=== PATIENT | female | born 1950 | race Caucasian/White ===

== ENCOUNTER 2023-02-26 05:18 | Observation (INO) ==
--- NOTE | 2023-01-24 13:23 | PAT Medication Instructions ---
Medication Instructions Date of Service January 24, 2023 Home Medications Medication Instructions Recorded bupropion HCl 150 mg tablet,12 hr 150 mg PO BID #180 ea 03/03/22 sustained-release (Wellbutrin SR) levothyroxine 88 mcg tablet 88 mcg PO .COMPLEX #90 tabs 03/03/22 tramadol 50 mg tablet 50 mg PO Q8H PRN pain #30 tabs 09/15/22 levothyroxine 100 mcg tablet 100 mcg PO .COMPLEX #90 tabs 12/15/22 sumatriptan succinate 100 mg tablet 100 mg PO Q2H PRN migraines trazodone 50 mg tablet 100 mg PO HS PRN insomnia bupropion HCl 150 mg tablet,12 hr sustained-release (Wellbutrin SR) 150 mg PO BID levothyroxine 88 mcg tablet 88 mcg PO .COMPLEX fluticasone propionate 50 mcg/actuation nasal spray,suspension 2 spray intranasal DAILY PRN Nasal Congestion tramadol 50 mg tablet 50 mg PO Q8H PRN pain levothyroxine 100 mcg tablet 100 mcg PO .COMPLEX gabapentin 300 mg capsule 900 mg PO TID migraines pantoprazole 40 mg tablet,delayed release (Protonix) 40 mg PO QAM spironolactone 25 mg tablet 25 mg PO HS PRN Hypertension Take morning of surgery With a small sip of water, OTHERWISE NOTHING TO EAT OR DRINK AFTER MIDNIGHT: sumatriptan succinate 100 mg tablet 100 mg PO Q2H PRN migraines (if needed) bupropion HCl 150 mg tablet,12 hr sustained-release (Wellbutrin SR) 150 mg PO BID levothyroxine fluticasone propionate 50 mcg/actuation nasal spray,suspension 2 spray intranasal DAILY PRN Nasal Congestion (if needed) tramadol 50 mg tablet 50 mg PO Q8H PRN pain (if needed) gabapentin 300 mg capsule 900 mg PO TID migraines pantoprazole 40 mg tablet,delayed release (Protonix) 40 mg PO QAM Take evening before surgery sumatriptan succinate 100 mg tablet 100 mg PO Q2H PRN migraines (if needed) trazodone 50 mg tablet 100 mg PO HS PRN insomnia (if needed) bupropion HCl 150 mg tablet,12 hr sustained-release (Wellbutrin SR) 150 mg PO BID fluticasone propionate 50 mcg/actuation nasal spray,suspension 2 spray intranasal DAILY PRN Nasal Congestion (if needed) tramadol 50 mg tablet 50 mg PO Q8H PRN pain (if needed) gabapentin 300 mg capsule 900 mg PO TID migraines spironolactone 25 mg tablet 25 mg PO HS PRN Hypertension (if needed) Other Notes If you have any questions please call us at [phone] or [phone] or [phone] or [phone]
--- NOTE | 2023-01-30 14:29 | Anesthesiology Consultation ---
Date of Service January 30, 2023 Assessment & Plan (1) Encounter for pre-operative examination: - COVID screening: Per assessment on 01/30: No known COVID-19 positive contacts or current COVID-19 related symptoms. Travel screen negative. Patient vaccinated. At surgeon discretion if preop Covid testing being done. - Cardiology visit (01/18/23): "Patient was evaluated at [facility] ER on 12/29.. after sustaining a hypotensive episode and a profound near syncopal episode. Patient has been having a lot of difficulty with knee pain due to advanced osteoarthritis and she is planning on having both knees replaced by Dr. Murray in coming months. Patient thinks that her severe knee pain is contributing to these episodes. She was just standing when she suddenly felt warm all over, turned very pale, developed cold sweats followed by profound lightheadedness. Patient did not have complete loss of consciousness nor did she collapsed to the floor or sustain any injuries. She described the event as being awake and hearing people but feeling like I may pass out. This is different than her initial syncopal episodes when she was in [place]. She did not have any warning symptoms with those, but the past couple of near syncopal episode she has had have been described like a vasovagal near-syncope. Within 5-10 minutes of this last event, she felt like her so. Her made her go to the ER, but she was back to baseline by that time and her blood pressure was 132/74 in the ER. They watched her for short time -- but she did not require any specific treatment, IV fluids, etc.. Patient has not had any further near syncopal episodes nor has she had any syncopal episodes. She is able to do her activities of daily living and still works on a routine basis but she is slowed down by her knee pain at this point. Patient has not experienced any angina pectoris or anginal equivalent symptoms, overt signs or symptoms of heart failure, nor has she had any recent tachy-palpitations or tachy-arrhythmias. She has not had any symptoms suggestive of stroke or mini stroke. This is a very difficult case because the patient is hypertensive most with time but does have episodes of hypotension and in this case appears to have a vasovagal component. Recommend the followin. Continue Amlodipine 5 mg daily. 2. Continue Vytorin 10-10 mg daily. 3. Continue Toprol XL 12.5 mg daily. 4. Continue Spironolactone 25 mg daily. 5. Adjust antihypertensives based on morning blood pressure reading. 6. Maintain a low-sodium diet. 7. I suspect the gett ing her knees replaced lessen her propensity towards vasovagal episodes.. Based on her functional status without limiting cardiopulmonary symptoms, normal LV systolic function, and a normal EKG with the exception of PVCs -- patient is a low to intermediate cardiac risk for her upcoming knee replacement surgeries.. There is no need for further ischemic workup at this time." Chart Review Chart Review: Acceptable Risk for Surgery and Patient seen in Pre Admission Testing Teaching & Discussion Pre-Anesthesia Teaching/Discussion Notes: Instructed NPO after midnight before surgery,except medications with 15 cc of water. Medication instructions provided according to the PAT guidelines. History Surgery Operation Date: 02/26/23 10:40 Proposed Procedures p Total Knee Arthroplasty Bilateral - Michael Murray DO Height/Weight Height: 5 ft 3 in Weight: 65.5 kg Allergies Allergy/AdvReac Type Severity Reaction Status Date / Time Sulfa (Sulfonamide AdvReac Intermediate nausea Verified 01/24/23 08:55 Antibiotics) Medications Home Medications Medication Instructions Recorded Confirmed Last Taken sumatriptan succinate 100 mg tablet 100 mg PO Q2H PRN migraines 02/25/21 01/24/23 Unknown trazodone 50 mg tablet 100 mg PO HS PRN insomnia 02/25/21 01/24/23 Unknown bupropion HCl 150 mg tablet,12 hr 150 mg PO BID #180 ea 03/03/22 01/24/23 Unknown sustained-release (Wellbutrin SR) levothyroxine 88 mcg tablet 88 mcg PO .COMPLEX #90 tabs 03/03/22 01/24/23 Unknown fluticasone propionate 50 2 spray intranasal DAILY PRN Nasal 04/24/22 01/24/23 Unknown mcg/actuation nasal Congestion spray,suspension tramadol 50 mg tablet 50 mg PO Q8H PRN pain #30 tabs 09/15/22 01/24/23 Unknown levothyroxine 100 mcg tablet 100 mcg PO .COMPLEX #90 tabs 12/15/22 01/24/23 Unknown gabapentin 300 mg capsule 900 mg PO TID migraines 01/24/23 01/24/23 Unknown pantoprazole 40 mg tablet,delayed 40 mg PO QAM 01/24/23 01/24/23 Unknown release (Protonix) spironolactone 25 mg tablet 25 mg PO HS PRN Hypertension 01/24/23 01/24/23 Unknown Wheeled Walker #1 ea 01/30/23 01/30/23 Unknown Past Medical History Medical History Allergic rhinitis Anxiety and depression Hyperlipidemia no current medications Hypertension Hypotension Possibly pain related episodes Hypothyroidism Insomnia Migraine headache Osteoarthritis Paroxysmal atrial tachycardia Prediabetes per records, pt denies PVC's (premature ventricular contractions) Exercise / Class Metabolic Activity II 4-5 Yardwork/Stairs/Walk up hill (one FS (no CP, no SOB)) Past Family History Family History Father Hypertension Multiple myeloma Mother Esophageal cancer Other No family history of adverse response to anesthesia Denies family history of Ovarian cancer Prostate cancer Myocardial infarction Breast cancer Colorectal cancer Past Surgical History Surgical History History of carpal tunnel surgery R/L History of colonoscopy History of open reduction and internal fixation (ORIF) procedure Right ankle S/P rotator cuff repair Left shoulder Difficulty with post-op pain management* S/P tonsillectomy Past Anesthesia History No Hx of Anesthesia Complications and No Family Hx of Anesthesia Complications History of PONV No Hx of PONV and No Hx of Motion Sickness Social History Smoking Status: Never smoker Do You Dip or Chew Tobacco: No Hx Alcohol Use: No Hx Substance Use: No substance use type: does not use Review of Systems Patient denies chest pain, shortness of breath, dyspnea on exertion, fever, chills, cough, wheezing, palpitations. Physical Exam Vital Signs VITALS BP 165/67 P 87 TEMP 98.3 SP02 96%RA RESP 16 PHYSICAL Full cervical extension range of motion. Full TMJ range of motion. TMD 3 finger breaths Mallampati Score 2 Dentition: cap missing (right lower molar) Lungs: clear throughout to auscultation Cardiac: regular rate and rhythm with occasional beat, no murmurs noted Spine: normal Carotid arteries: negative bruit Extremities: no edema Lab Results Anesthesia Preop Results Results Anesthesia Widget: WBC 7.89 K/ul (4.8-10.8) 01/30/23 Hgb 12.1 g/dl (12.0-16.0) 01/30/23 Hct 36.5 % (37.0-47.0) L 01/30/23 Plt 348 K/uL (130-400) 01/30/23 Na 139 mmol/L (136-145) 01/30/23 K 3.9 mmol/L (3.5-5.1) 01/30/23 Cl 106 mmol/L (98-107) 01/30/23 CO2 27 mmol/L (21-32) 01/30/23 BUN 23 mg/dl (6-23) 01/30/23 Creat 1.32 mg/dl (0.6-1.2) H 01/30/23 Glucose Level 103 mg/dl (70-99(Fasting)) H 01/30/23 PT 10.3 Seconds (9.0-12.0) 01/30/23 PTT 28.7 Seconds (21.0-31.0) 01/30/23 INR 1.0 (0.9-1.1) 01/30/23 Blood Type Pending 01/30/23 Antibody Screen Pending 01/30/23 Testing Electrocardiogram Date: 12/29/22 SR with frequent PVCs at 68bpm. Chest X-Ray Date: 01/30/23 FINDINGS: Lung volumes are normal. Lungs are clear. There is no pneumothorax or pleural effusion. There is mild cardiomegaly. Mediastinal contours are normal. There is no evidence for pulmonary edema. IMPRESSION: No acute cardiopulmonary findings. Echocardiogram Date: 09/01/22 EF 60-65%. No RWMA. Mild MR. Borderline LAD. COVID-19 Risk Screen Screening Information COVID-19 Screen Date: 01/30/23 Exposure 21 Days Family/Household +COVID Last 21 Days: No Exposure 10 Days Any COVID Exposure Last 10 Days: No Symptoms Last 10 Days Experienced COVID Sx Last 10 Days: No + COVID 0-90 Days COVID + in Last 0-90 Days: No
[2023-02-26] MEDS ORDERED: dexAMETHasone 4 MG TAB PO SCH (06:00)
[2023-02-26] MEDS ORDERED: LR 60ML/HR IV SCH (06:00)
[2023-02-26] MEDS ORDERED: TRANEXAMIC ACID 1,000 MG **IV Intra-op IV SCH (06:00)
[2023-02-26] MEDS ORDERED: FAMOTIDINE 20 MG TAB PO SCH (06:00)
[2023-02-26] MEDS ORDERED: ACETAMINOPHEN 500 MG TAB PO SCH (06:00)
[2023-02-26] MEDS ORDERED: TRANEXAMIC ACID 1,000 MG **IV Pre-op IV SCH (06:00)
[2023-02-26] MEDS ORDERED: ceFAZolin 2000MG 2,000 MG/15 ML SYR IV SCH (06:00)
[2023-02-26] MEDS ORDERED: LR 500ML BOLUS, THEN 15ML/HR IV SCH (06:00)
[2023-02-26] MEDS ORDERED: GABAPENTIN 300 MG CAP PO SCH (06:00)
[2023-02-26] MEDS ORDERED: ORTHO JOINT MIX INFIL SCH (06:00)
[2023-02-26] MEDS ORDERED: BUPIVACAINE 0.5 % 5 MG/1 ML PF 10ML VIAL ONE (06:20)
[2023-02-26] MEDS ORDERED: EPINEPHrine INJ 1 MG/ML AMP ONE (06:20)
[2023-02-26] MEDS ORDERED: BUPIVACAINE 0.25% PF 30 ML VIAL ONE (06:20)
[2023-02-26] MEDS ORDERED: DEXAMETHASONE SOD INJ 4 MG/ML VIAL ONE (06:20)
[2023-02-26] MEDS ORDERED: MIDAZOLAM HCL 1 MG/ML 2ML VIAL ONE (06:39)
[2023-02-26] MEDS ORDERED: fentaNYL citrate PF 100 MCG/2 ML VIAL ONE (06:39)
--- NOTE | 2023-02-26 06:40 | History & Physical Bridge Note ---
Date of Service February 26, 2023 History & Physical Bridge Note I have examined the patient, reviewed the History & Physical and in the interval since the performance of the History & Physical I have noted the following changes of clinical significance: no changes noted
[2023-02-26] MEDS ORDERED: ORTHO JOINT ANESTHETIC ONE (06:54)
[2023-02-26] MEDS ORDERED: ONDANSETRON INJ 2 MG/ML 2 ML VIAL IV PRN ×2 (07:03→10:18)
[2023-02-26] MEDS ORDERED: ePHEDrine sulfate 50 MG/ML AMP IV PRN (07:03)
[2023-02-26] MEDS ORDERED: ATROPINE SULFATE 0.1 MG/ML 10ML SYR IV PRN (07:03)
[2023-02-26] MEDS ORDERED: fentaNYL citrate PF 100 MCG/2 ML VIAL IV PRN (07:03)
[2023-02-26] MEDS ORDERED: ONDANSETRON INJ 2 MG/ML 2 ML VIAL ONE (07:24)
[2023-02-26] MEDS ORDERED: PROPOFOL IV EMULSION 10 MG/ML 20 ML VIAL IV ONE (07:24)
[2023-02-26] MEDS ORDERED: ePHEDrine sulfate 50 MG/ML SYR ONE (07:29)
--- NOTE | 2023-02-26 09:20 | Operative Report ---
PG Post Operative Report Pre & Post Diagnosis Operation Date: 02/26/23 07:00 Pre-Op Diagnosis: Bilateral Knees Degenerative Joint Disease Post-Op Diagnosis: Bilateral Knees Degenerative Joint Disease I identified the patient and participated in the time-out.: Yes Procedure Operation Date: 02/26/23 07:00 Actual Procedures p Bilateral Total Knee Arthroplasty(Bilateral) - Michael Murray DO Surgeon Michael Murray DO Director Of Neurology Michael Garner PA-C Estimated Blood Loss 50 Findings Consistent with Post-Op Diagnosis Specimens Right and left femoral and tibial bone Description of Procedure Charlotte arrived [facility] for the above procedure. She was seen in the preoperative holding area and both knees were identified and signed. She was given a preoperative antibiotic, TXA, a spinal anesthetic and adductor nerve blocks. She was taken back to the operating room and laid on the table in supine position. She was given basic sedation. Both knees were then prepped and draped in sterile fashion. A timeout was done, and the patient and the operative extremities were properly identified. Right knee implants used: I used a Dalton Persona total knee arthroplasty system with a size 5 narrow PS femur, C tibia with a 30 mm stem extension, 28 oval patella, and a size 10 CPS polyethylene bearing. All components were cemented in place with Palacos G cement. A midline incision was made directly over the patella. Dissection was taken down to the extensor mechanism. A midvastus arthrotomy was used. The medial retinaculum was released and the fat pad was mostly excised. The knee was flexed and the ACL, PCL, and meniscus were removed. A drill was sent down the center of the femoral canal followed by an intramedullary melyssa. Off that melyssa a distal femoral cutting block was placed. 9 mm was resected off the distal femur at 5 of valgus. A posterior referencing AP sizing guide was then placed on the distal femur. The femur measured to be a size 5 narrow. 2 drill holes were placed in 3 of external rotation. A 4-in-1 cutting block was then impacted into place. Anterior, posterior, and chamfer cuts were then made. The proximal tibia was then exposed. An external tibial alignment guide was placed. A tibial cut guide was then anchored in place and the proximal tibia was then resected. The posterior aspect of the knee was then opened up and any additional meniscus fragments and osteophytes were removed. The tibia measured to be a size C. The tibial plate was then placed in the appropriate rotation and the tibia was drilled and punched. Trial components were then placed. I used a size 10 CPS polyethylene insert. The knee was brought through a full range of motion and felt to be stable. The peg holes for the femur were then drilled. The patella was then everted and 9 mm was resected off the posterior aspect of the patella. The patella measured to be a size 28 oval. 3 peg holes were then drilled. A trial patella was placed. The knee was once again brought through a full range of motion and felt to be stable. Trial components were then removed. The surrounding soft tissues were injected with 50 cc of an orthopedic pain control cocktail. All components were then cemented into place with Palacos G cement. The final polyethylene insert was th en snapped into place. Once cement was dry the tourniquet was deflated. Hemostasis was obtained. A dilute betadyne lavage was then done for 3 minutes. The joint was then irrigated with normal saline solution. The midvastus arthrotomy was then closed with #1 Vicryl suture. The skin was closed with 2-0 Vicryl, 3-0V lock suture, and cate. A Silverlon and a soft compressive dressing were placed. Left knee implants used: I used a Dalton Persona total knee arthroplasty system with a size 7 narrow femur, D tibia with a 30 mm stem extension, 28 oval patella, and a size 12 CPS polyethylene bearing. All components were cemented in place with Palacos G cement. A midline incision was made directly over the patella. Dissection was taken down to the extensor mechanism. A midvastus arthrotomy was used. The medial retinaculum was released and the fat pad was mostly excised. The knee was flexed and the ACL, PCL, and meniscus were removed. A drill was sent down the center of the femoral canal followed by an intramedullary melyssa. Off that melyssa a distal femoral cutting block was placed. 9 mm was resected off the distal femur at 5 of valgus. A posterior referencing AP sizing guide was then placed on the distal femur. The femur measured to be a size 7 narrow. 2 drill holes were placed in 3 of external rotation. A 4-in-1 cutting block was then impacted into place. Anterior, posterior, and chamfer cuts were then made. The proximal tibia was then exposed. An external tibial alignment guide was placed. A tibial cut guide was then anchored in place and the proximal tibia was resected. The posterior aspect of the knee was then opened up and any additional meniscus fragments and osteophytes were removed. The tibia measured to be a size D. The tibial plate was then placed in the appropriate rotation and the tibia was drilled and punched. Trial components were then placed. I used a size 12 CPS polyethylene insert. The knee was brought through a full range of motion and felt to be stable. The peg holes for the femur were then drilled. The patella was then everted and 9 mm was resected off the posterior aspect of the patella. The patella measured to be a size 28 oval. 3 peg holes were then drilled. A trial patella was placed. The knee was once again brought through a full range of motion and felt to be stable. Trial components were then removed. The surrounding soft tissues were injected with 50 cc of an orthopedic pain control cocktail. All components were then cemented into place with Palacos G cement. The final polyethylene insert was then snapped into place. Once cement was dry the tourniquet was deflated. Hemostasis was obtained. A dilute betadyne lavage was then done for 3 minutes. The joint was then irrigated with normal saline solution. The midvastus arthrotomy was then closed with #1 Vicryl suture. The skin was closed with 2-0 Vicryl, 3-0V lock suture, and cate. A Silverlon and a soft compressive dressing were placed. Lonny was then transferred to a hospital bed and taken to the postanesthesia care unit in stable condition. She tolerated the procedure well. Michael Garner PA-C, was present for the entire procedure. He was critical for patient positioning, prepping, draping, retraction exposure, wound closure and application of sterile dressing. I attest to the content of the Intraoperative Record and any orders documented therein. Any exceptions are noted below.
--- NOTE | 2023-02-26 09:55 | XRay Report ---
TWO VIEWS LEFT KNEE CLINICAL HISTORY: Postoperative examination. FINDINGS: AP and crosstable lateral portable views of the left knee are compared to study dated 023. A left knee arthroplasty is in near anatomic alignment. There has been undersurface remodeling o f the patella. No acute fracture is seen. 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 There are expected postoperative changes around the knee including skin clips, so ft tissue edema, and subcutaneous gas. IMPRESSION: 1. Expected postoperative changes status post left knee arthroplasty. No acute fracture is seen. 2. 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 ACT 112: Negative or not required by law. Electronically signed by: Dylon Rodriguez M.D. 02/26/2023 9:54 AM
--- NOTE | 2023-02-26 09:56 | XRay Report ---
RIGHT KNEE 2 VIEWS History: Right total knee arthroplasty. Degenerative arthritis. Postop. FINDINGS: The patient is status post a right total knee arthroplasty. The hardware is intact. No frac ture or dislocation. Skin cate are in place. IMPRESSION: Right total knee arthroplasty. No evidence for hardware complication. ACT 112: Negative or not required by law. Electronically signed by: Sharad Gonzalez M.D. 02/26/2023 9:54 AM
--- NOTE | 2023-02-26 10:16 | Anesthesiology Progress Note ---
Date of Service February 26, 2023 Anesthesia Post Procedure Vital Signs Vital Signs: Temp Pulse Pulse Resp BP Pulse Ox O2 Del Method 02/26/23 10:05 59 L 12 103/52 L 99 Room Air 02/26/23 09:55 36.3 C L 60 15 110/54 L 100 Room Air 02/26/23 09:45 60 16 120/64 100 Oxymask 02/26/23 09:35 62 16 114/56 L 100 Oxymask 02/26/23 09:28 36.0 C L 62 12 109/54 L 98 Oxymask 02/26/23 05:37 36.7 C 68 20 162/66 H 97 Room Air O2 Flow Rate 02/26/23 10:05 02/26/23 09:55 02/26/23 09:45 4 02/26/23 09:35 4 02/26/23 09:28 6 02/26/23 05:37 Transfer of Care Handoff Completed per policy Notes Mental Status: alert / awake / arousable Patient Amnestic to Procedure: Yes Nausea / Vomiting: adequately controlled Pain: adequately controlled Airway Patency, RR, SpO2: stable & adequate BP & HR: stable & adequate Hydration State: stable & adequate Neuraxial Anesthesia: was administered and sensory block is resolving Anesthetic Complications: no major complications apparent and Pt Satisfied with anesthetic care
[2023-02-26] MEDS ORDERED: MAGNESIUM HYDROXIDE SUSP 30 ML UDC PO PRN (10:18)
[2023-02-26] MEDS ORDERED: SPIRONOLACTONE 25 MG TAB PO PRN (10:18)
[2023-02-26] MEDS ORDERED: bisacodyL 10 MG SUPP PR PRN (10:18)
[2023-02-26] MEDS ORDERED: METOCLOPRAMIDE HCL INJ 5 MG/ML 2 ML VIAL IV PRN (10:18)
[2023-02-26] MEDS ORDERED: SUMAtriptan succinate 100 MG TAB PO PRN (10:18)
[2023-02-26] MEDS ORDERED: traZODone HCL 100 MG TAB PO PRN (10:18)
[2023-02-26] MEDS ORDERED: NALOXONE HCL 0.4 MG/1 ML VIAL/CARP IV PRN (10:18)
[2023-02-26] MEDS ORDERED: FLUTICASONE PROPIONATE NA SPR 16 GM BTL PRN (10:18)
[2023-02-26] MEDS ORDERED: HYDROmorphone INJ 0.5 MG/0.5 ML SYR IV PRN (10:18)
[2023-02-26] MEDS: KETOROLAC TROMETHAMINE 15 MG/ML VIAL IV SCH ×3 (10:59→22:30)
[2023-02-26] MEDS: SODIUM CHLORIDE 0.9% 1000ML 1,000 ML IV SCH ×2 (10:59→20:46)
[2023-02-26] MEDS: ACETAMINOPHEN 500 MG TAB PO SCH ×2 (13:50→22:31)
[2023-02-26] MEDS: GABAPENTIN 600 MG TAB PO SCH ×2 (13:50→20:38)
[2023-02-26] MEDS: ceFAZolin 2000MG 2,000 MG/15 ML SYR IV SCH ×2 (16:27→22:31)
[2023-02-26] MEDS: ASPIRIN 81 MG ECTAB PO SCH (20:38)
[2023-02-26] MEDS: buPROPion SR 150 MG TABCR PO SCH (20:38)
[2023-02-26] MEDS ORDERED: SENNA 8.6 MG TAB PO SCH (21:00)
[2023-02-26] MEDS: DOCUSATE SODIUM 100 MG CAP PO SCH (21:25)
[2023-02-27] MEDS: oxyCODONE HCL IR 5 MG TAB (IMMEDIATE RELEASE) PO PRN ×2 (01:16→08:05)
[2023-02-27] MEDS: ACETAMINOPHEN 500 MG TAB PO SCH (05:30)
[2023-02-27] MEDS: KETOROLAC TROMETHAMINE 15 MG/ML VIAL IV SCH (05:31)
[2023-02-27] MEDS ORDERED: LEVOTHYROXINE SODIUM 100 MCG TABLET PO SCH (06:30)
--- NOTE | 2023-02-27 06:36 | Orthopedic Progress Note ---
Date of Service February 27, 2023 Assessment & Plan (1) Status post bilateral knee replacements: Overall she is doing fairly well. She is not having much pain in her knees. She has been up and ambulating to the bathroom. She will be seen by physical therapy today for ambulation and range of motion exercises. The nursing staff can change her dressings after physical therapy. She is on aspirin for DVT prophylaxis. She can be discharged home later today. She will follow-up with orthopedics in 2 weeks. Gavin Porter was seen and examined at bedside this morning. Overall she is doing very well. She is not having much pain in her knees. She has been up and ambulating to the bathroom. She has no complaints.. Review of Systems All systems reviewed & are unremarkable except as noted in HPI & below. Physical Exam On physical examination of both knees, the dressing is clean and dry. Her legs are out full extension. She has active dorsiflexion plantarflexion of both ankles.. Results & Data Results & Data Laboratory Results . Diagnostic Findings Postoperative x-rays of both knees show the prosthesis to be in anatomic alignment without any evidence of fracture, screws, or loosening.. PG Care Time/CCT Total # of Minutes Spent Total Time Spent with Patient: Total time spent is greater than 50% in coordination of care (as documented) at patient's floor/unit and/or counseling patient: Coding Level of Care Code 21923 Post Operative Follow-Up Diagnoses Status post bilateral knee replacements Z96.653
--- NOTE | 2023-02-27 06:37 | Discharge Summary ---
Date of Service February 27, 2023 Principal Diagnosis Same as "Discharge Diagnosis" noted below under Discharge Instructions. Discharge Exam On physical examination of both knees, the dressing is clean and dry. Her legs are out full extension. She has active dorsiflexion plantarflexion of both ankles.. Discharge Data Procedures Performed Operation Date: 02/26/23 07:00 Actual Procedures p Bilateral Total Knee Arthroplasty(Bilateral) - Michael Murray DO Ordered Studies 02/26/23 05:00 US - OR guided needle placemen Routine Hospital Course (1) Status post bilateral knee replacements: On February 26, 2023 Charlotte arrived at [facility] and underwent bilateral knee replacements without complication. She had a spinal anesthetic. Postoperatively she was started on aspirin for DVT prophylaxis and transferred to the general orthopedic floors. Her hospital course was uneventful. On postop day #1, her vital signs were stable and her pain was well controlled. She was able to participate well with physical therapy doing ambulation and range of motion exercises. She was then discharged home. She will follow-up with orthopedics in 2 weeks. PG Care Time/CCT Total # of Minutes Spent Total Time Spent with Patient: Total time spent is greater than 50% in coordination of care (as documented) at patient's floor/unit and/or counseling patient: Discharge Plan Discharge Items Patient Disposition: Home - Home Health Services Reason For Visit: Bilateral Knees Degenerative Joint Disease Discharge Diagnosis: Bilateral knee replacements Activity: As commented below Non-emergency contact: Surgeon Call non-emergency contact if: your wound has increased redness and your wound has increased drainage Follow-up/Referrals: Teena Cadena DO [Primary Care Provider] - Diet: Regular Addtl Attending Provider Instructions: Activity and Therapy Recommendations: * If you are using [facility] then therapy will be provided at your home until they feel you have accomplished all of your goals. * If you are using [facility] then Physical Therapy will be provided until they feel you are ready to start Outpatient Physical Therapy. * If you are not using home therapy then Outpatient Physical Therapy should start about 3-5 days from your day of surgery. Therapy will last about 6-10 weeks * It is important not to put a pillow under your knee when you are relaxing or sleeping. It is just as important to make sure you are getting your knee perfectly straight as it is to regain your knee bend. * You were shown a series of exercises in the hospital. Do these exercises three times each day including the exercises you were shown in physical therapy. * Get up and walk several times each day. For the first four weeks, try not to stand or walk for more than one hour at a time. If you do stand or walk for more than one hour, you will not hurt anything, but your leg will likely swell. * As you feel comfortable, you may change from the walker or crutches to a cane and then to independent walking. Medications: * Narcotic You will likely be sent home from the hospital with a prescription for the narcotic pain medication that worked best throughout your stay. * Aspirin Most patients will be required to take Aspirin 81mg twice a day for 6 weeks after surgery. This is obtained [id number] and a prescription is not necessary. * Other medications may be prescribed for specific circumstances. If you have any questions, please call the office at . * Resume previous home medications unless otherwise instructed TEDs/Elastic Stockings: The white elastic stockings help limit swelling and prevent blood clots from forming in your legs.~ The more you wear them, the more they work. Wear them for six weeks. Dressing Care: The dressing can be changed after physical therapy on postop day #1. Daily dry dressing changes for a few days, especially if the incision is still draining some. If the incision is not draining then you may leave the cate open to air. If there is a little bit of drainage or if the cate are getting stuck on your clothing then cover the incision with a dry dressing. The cate will be removed at your 2 week follow-up appointment. Showering: You may shower 5 days from the day of surgery as long as the incision is no longer draining. You may shower with the cate exposed. Let soapy water run over the cate and pat them dry. Do not scrub or soak the incision. Things To Watch For: * Drainage from the incision site that occurs more than one week after your surgery. * Increased redness at the incision site. * Fever above 102 degrees Fahrenheit. * Unusual chest pain or shortness of breath. * Call [facility] at with any of the above problems Follow-Up Visit: Follow-up with Dr. Murray's PA (Michael Garner) 2-3 weeks after your day of surgery. He will remove your cate and answer any questions. If you have any additional questions or concerns, Dr Murray is usually in the office at the same time and will be available An appointment was probably scheduled when you signed-up for surgery in the office. If you have any questions call Office Instructions: More detailed instructions as well as Frequently Asked Questions were provided in a folder by our office when you signed-up for surgery. Please review these instructions when you get home. If you have any further questions or concerns, please feel free to call the office at [phone] Pending Studies at Discharge: No Stand-Alone Forms: My [facility], Smoking Cessation Medications and DC Order Prescriptions: New aspirin 81 mg Tablet,Delayed Release (Dr/Ec) 81 mg PO BID 42 Days Qty: 84 0RF oxycodone 5 mg Tablet 5 mg PO Q4H PRN (Reason: pain) Qty: 40 0RF Continued sumatriptan succinate 100 mg tablet 100 mg PO Q2H PRN (Reason: migraines) Rx Instructions: do not exceed 2 doses per 24 hrs trazodone 50 mg tablet 100 mg PO HS PRN (Reason: insomnia) fluticasone propionate 50 mcg/actuation spray,suspension 2 spray intranasal DAILY PRN (Reason: Nasal Congestion) Rx Instructions: administer into each nostril bupropion HCl [Wellbutrin SR] 150 mg tablet sustained-release 12 hr 150 mg PO BID Qty: 180 1RF levothyroxine 88 mcg tablet 88 mcg PO .COMPLEX Qty: 90 1RF Rx Instructions: 88 mcg PO Sunday and Sunday; (DME) [facility] [place] See Rx Instructions .MEDSUPPLY Qty: 1 0RF Rx Instructions: As directed levothyroxine 100 mcg tablet 100 mcg PO .COMPLEX Qty: 90 3RF Rx Instructions: 100 mcg PO Sunday- Sunday; tramadol 50 mg tablet 50 mg PO Q8H PRN (Reason: pain) Qty: 30 0RF spironolactone 25 mg tablet 25 mg PO HS PRN (Reason: Hypertension) pantoprazole [Protonix] 40 mg tablet,delayed release (DR/EC) 40 mg PO QAM gabapentin 300 mg capsule 900 mg PO TID Admission Data Admit Date/Time: 02/26/23 09:29 Attending Provider: Michael Murray Admit Provider: Michael Murray Primary Care Provider: Teena Cadena
[2023-02-27 06:59] LABS: Creatinine Clr Calc Pharmacy 38.7 ml/min; Est GFR (Non-African American) 44.8 ml/min
[2023-02-27] MEDS ORDERED: dexAMETHasone 4 MG TAB PO SCH (08:00)
[2023-02-27] MEDS: ASPIRIN 81 MG ECTAB PO SCH (08:05)
[2023-02-27] MEDS: buPROPion SR 150 MG TABCR PO SCH (08:06)
[2023-02-27] MEDS: GABAPENTIN 600 MG TAB PO SCH (08:06)
[2023-02-27] MEDS: DOCUSATE SODIUM 100 MG CAP PO SCH (08:06)
[2023-02-27] MEDS ORDERED: MULTIVITAMIN TAB PO SCH (09:00)
[2023-03-03] MEDS ORDERED: LEVOTHYROXINE SODIUM 88 MCG TABLET PO SCH (06:30)
== END 2023-02-27 12:09 | disposition home health service (06) ==
LOC: ASU 05:18 → 3E 05:18

== ENCOUNTER 2023-08-17 09:21 | Inpatient (IN) ==
--- NOTE | 2023-08-15 09:02 | Anesthesiology Consultation ---
Date of Service August 15, 2023 Assessment & Plan (1) Encounter for pre-operative examination: - Infectious disease screening: Per assessment on 08/15/23: No known infectious disease contacts or current infectious disease symptoms. No noted Covid positive test result in past 90 days. - S/P Left reverse TSA (06/25/23): Grade 2 view, MAC#3, ETT 7.0 + PNB at [facility]. No issues noted per post-op anesthesia progress note. - Cardiology visit (07/16/23): "Mrs. Monzon is a 72-year-old female with a history of Hypertension, Hypercholesterolemia, PVC's, PAC's, PAT, Prediabetes, Hypothyroidism, Anxiety/Depression, Migraine Headaches, Allergic Rhinitis, Osteoarthritis, Osteoarthritis s/p Bilateral TKA's 02/26/23 complicated by DVT and Right Pulmonary Embolus, s/p Left Reversed TSA 06/25/23, and Hypotension/Syncope who presents today for Cardiologic Follow-up. Since her last visit, patient had both knees replaced on 02/26/2023 and this was complicated by a right-sided pulmonary embolus and DVT. She is currently on Eliquis for this and will be treated for a minimum of 3 months if not longer. She also more recently had a left total shoulder arthroplasty which was uncomplicated on 06/25/2023. She is starting physical therapy for her shoulder today. Patient offers no complaints today..Continue Eliquis 5 mg b.i.d. for 3-6 months for her postoperative DVT and pulmonary embolism.. Increase aerobic activities as tolerated, she should be able to do much better since having her knees replaced.. Maintain a low-sodium diet.. Continue to monitor blood pressure at home with the goal average BP being < 130/80.. Continue medications as listed." - Eliquis instructions per surgeon/prescriber (was given approval by PCP to hold prior to 05/2023 Left TSA done at [facility], at surgeon/prescriber discretion regarding perioperative recommendations for upcoming surgery) Chart Review Chart Review: Acceptable Risk for Surgery and Patient NOT seen in Pre Admission Testing History Surgery Operation Date: 08/17/23 13:00 Proposed Procedures p Open Irrigation and Debridement Left Total Shoulder Arthroplasty, - Michael Murray DO s Polyethylene Exchange - Michael Murray, DO Height/Weight Height: 5 ft 3 in Weight: 63.503 kg Allergies Allergy/AdvReac Type Severity Reaction Status Date / Time Sulfa (Sulfonamide AdvReac Intermediate nausea Verified 08/14/23 11:55 Antibiotics) Medications Home Medications Medication Instructions Recorded Confirmed Last Taken levothyroxine 88 mcg tablet 88 mcg PO .COMPLEX #90 tabs 03/03/22 08/15/23 06/25/23 03:45 fluticasone propionate 50 2 spray intranasal DAILY PRN Nasal 04/24/22 08/15/23 Unknown mcg/actuation nasal Congestion spray,suspension levothyroxine 100 mcg tablet 100 mcg PO .COMPLEX #90 tabs 12/15/22 08/15/23 06/25/23 03:45 gabapentin 300 mg capsule 900 mg PO TID migraines 01/24/23 08/15/23 06/25/23 03:45 pantoprazole 40 mg tablet,delayed 40 mg PO QAM 01/24/23 08/15/23 06/25/23 03:45 release (Protonix) sumatriptan succinate 100 mg tablet 100 mg PO ONCE PRN migraines #20 04/13/23 08/15/23 Unknown tabs bupropion HCl 150 mg tablet,12 hr 150 mg PO BID #180 ea 05/21/23 08/15/23 06/25/23 03:45 sustained-release (Wellbutrin SR) cyanocobalamin (vitamin B-12) 1,000 mcg IM .COMPLEX #300 mL 05/25/23 08/15/23 06/22/23 1,000 mcg/mL injection solution apixaban 5 mg tablet (Eliquis) 5 mg PO BID #60 tabs 06/08/23 08/15/23 06/22/23 07:30 celecoxib 200 mg capsule (Celebrex) 200 mg PO Q12H PRN pain #30 caps 06/25/23 08/15/23 Unknown oxycodone-acetaminophen 5 mg-325 1 tab PO Q6H PRN pain #30 tabs 06/25/23 08/15/23 Unknown mg tablet (Percocet) oxycodone-acetaminophen 5 mg-325 1 tab PO Q6H PRN pain #30 tabs 07/11/23 08/15/23 Unknown mg tablet (Percocet) spironolactone 25 mg tablet 25 mg PO HS PRN Hypertension #90 07/23/23 08/15/23 Unknown tabs doxycycline hyclate 100 mg tablet 100 mg PO BID 10 days #20 tabs 07/24/23 08/15/23 Unknown sulfamethoxazole 800 1 tab PO Q12H 7 days #14 tabs 07/24/23 08/15/23 Unknown mg-trimethoprim 160 mg tablet (Bactrim DS) oxycodone 5 mg tablet 5 mg PO Q6 PRN pain #30 tabs 08/14/23 08/15/23 Unknown sulfamethoxazole 800 1 tab PO Q12H #10 tabs 08/14/23 08/15/23 Unknown mg-trimethoprim 160 mg tablet (Bactrim DS) Past Medical History Medical History (Updated 08/15/23 @ 08:53 by Bridgette Fay) Allergic rhinitis Anemia Anxiety and depression B12 deficiency History of pulmonary embolus (PE) Post-op b/l knee replacement (02/2023) Hyperlipidemia no current medications Hypertension Hypotension Possibly "pain related episodes" Hypothyroidism Insomnia Migraine headache Osteoarthritis Paroxysmal atrial tachycardia Post op infection left shoulder Prediabetes PVC's (premature ventricular contractions) Past Family History Family History Father Hypertension Multiple myeloma Mother Esophageal cancer Other No family history of adverse response to anesthesia Denies family history of Ovarian cancer Prostate cancer Myocardial infarction Breast cancer Colorectal cancer Past Surgical History Surgical History (Updated 08/15/23 @ 08:53 by Bridgette Fay) History of bilateral knee replacement History of carpal tunnel surgery R/L History of colonoscopy History of open reduction and internal fixation (ORIF) procedure Right ankle S/P rotator cuff repair Left shoulder Difficulty with post-op pain management* S/P tonsillectomy Status post reverse total replacement of left shoulder Social History Smoking Status: Never smoker Do You Dip or Chew Tobacco: No Hx Alcohol Use: No Hx Substance Use: No substance use type: does not use Lab Results Anesthesia Preop Results Results Anesthesia Widget: Blood Type O Positive 06/25/23 Antibody Screen NEGATIVE 06/25/23 Testing Laboratory Results 06/15/23 WBC 8.48 H/H 10.6/34.1 PLATELETS 368 SODIUM 141 POTASSIUM 3.8 CHLORIDE 108 CO2 27 BUN 17 CREATININE 0.93 GLUCOSE 119 TSH 1.512 HGBA1C 5.8% 05/08/23 PT 11.0 PTT 31.0 INR 1.0 *DOS for upcoming surgery 08/17/23, at anesthesiologist discretion DOS if they feel preop labs need updated prior to surgery from their perspective* Electrocardiogram Date: 03/27/23 Sinus rhythm with premature supraventricular complexes, rate 76 bpm Chest X-Ray Date: 03/07/23 No evidence of acute cardiopulmonary abnormality Echocardiogram Date: 09/01/22 EF 60-65% No regional wall motion abnormalities No LVH Mild mitral regurgitation Other Testing Chest CTA Date: 03/07/23 Nonocclusive embolus within a subsegmental branch of the left upper lobe No evidence of right sided heart strain is present Esophagus is dilated and fluid filled without evidence of obvious wall thickening Head and neck MRA Date: 06/26/22 No evidence of acute intracranial abnormality. In particular, no occlusion, hemorrhage, or aneurysmal disease is seen. Patency of the bilateral carotid and vertebral arteries with no evidence of hemodynamically significant stenosis.
[~2023-08-17 09:21] MED LIST: ACETAMINOPHEN 500 MG TAB PO SCH; BUPIVACAINE 0.5 % 5 MG/1 ML PF 10ML VIAL ONE; FAMOTIDINE 20 MG TAB PO SCH; GABAPENTIN 300 MG CAP PO SCH; LR 15ML/HR IV SCH; LR 60ML/HR IV SCH; ORTHO JOINT MIX INFIL SCH; TRANEXAMIC ACID 1,000 MG **IV Intra-op IV SCH; ceFAZolin 2000MG 2,000 MG/15 ML SYR IV SCH; dexAMETHasone 4 MG TAB PO SCH
[2023-08-17] MEDS ORDERED: MIDAZOLAM HCL 1 MG/ML 2ML VIAL ONE (12:24)
[2023-08-17] MEDS ORDERED: PROPOFOL IV EMULSION 10 MG/ML 20 ML VIAL IV ONE (12:24)
[2023-08-17] MEDS ORDERED: ROCURONIUM BROMIDE 10 MG/ML 5 ML VIAL IV ONE (12:24)
[2023-08-17] MEDS ORDERED: fentaNYL citrate PF 100 MCG/2 ML VIAL ONE (12:24)
[2023-08-17] MEDS ORDERED: LIDOCAINE 2% 2 ML VIAL/AMP(20MG/ML) INFIL ONE (12:24)
--- NOTE | 2023-08-17 12:53 | History & Physical Bridge Note ---
Date of Service August 17, 2023 History & Physical Bridge Note I have examined the patient, reviewed the History & Physical and in the interval since the performance of the History & Physical I have noted the following changes of clinical significance: no changes noted
[2023-08-17] MEDS: TRANEXAMIC ACID 1,000 MG **IV Pre-op IV SCH ×2 (13:07→18:08)
[2023-08-17] MEDS ORDERED: KETOROLAC 30 MG/ML VIAL IV PRN (13:29)
[2023-08-17] MEDS ORDERED: PROMETHAZINE HCL 6.25 MG in SODIUM CHLORIDE 0.9% 50 ML IV PRN (13:29)
[2023-08-17] MEDS ORDERED: ONDANSETRON INJ 2 MG/ML 2 ML VIAL IV PRN ×2 (13:29→18:13)
[2023-08-17] MEDS ORDERED: LABETALOL HCL IV 5 MG/ML 20ML IV PRN (13:29)
[2023-08-17] MEDS ORDERED: ATROPINE SULFATE 0.1 MG/ML 10ML SYR IV PRN (13:29)
[2023-08-17] MEDS ORDERED: DAKIN'S SOLN 0.5% FULL STRENGTH 473ML BTL EXT ONE (13:34)
[2023-08-17] MEDS ORDERED: ePHEDrine sulfate 50 MG/5 ML SYR ONE ×2 (14:24→15:01)
[2023-08-17] MEDS ORDERED: NEOSTIGMINE METHYLSULFATE 1 MG/ML 10ML VIAL ONE (14:26)
[2023-08-17] MEDS ORDERED: GLYCOPYRROLATE 0.2 MG/ML VIAL ONE (14:26)
[2023-08-17] MEDS ORDERED: ePHEDrine sulfate 50 MG/ML AMP ONE (15:01)
--- NOTE | 2023-08-17 16:01 | Operative Report ---
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 with loose glenoid baseplate and central glenoid bone loss I identified the patient and participated in the time-out.: Yes Procedure Operation Date: 08/17/23 13:00 Actual Procedures p Open Irrigation and Debridement of the left shoulder with removal of the glenoid and humeral implants, bone grafting of the central defect in the sarah oid, and implantation of a left shoulder hemiarthroplasty.- Michael Murray DO Surgeon Michael Murray DO [employer] Conservation Technician Michael Garner PA-C Estimated Blood Loss 100 Findings Consistent with Post-Op Diagnosis Specimens Abscess cultures Description of Procedure On August 17, 2023 Charlotte arrived at [facility] for the above procedure. She was seen in the preoperative holding area and the operative extremity identified and signed. She is given a preoperative antibiotic. She is taken back the operating room and laid on table supine position. She was put under general anesthesia. She was point to the beachchair position. Left shoulder was prepped and draped sterile fashion. A timeout was done. The patient and the operative extremity was properly identified. The full incision was opened back up. There was a large amount of purulent discharge from the inferior aspect of the incision. This was cultured. The infection did track through the deltopectoral interval and into the shoulder. The entire shoulder was opened up. Time was spent releasing the soft tissue in the subacromial and subdeltoid spaces. The subscapularis was not attached during the previous procedure. Once the soft tissues were released the humerus was dislocated. The humeral tray was then removed. Time was spent doing a debridement around the proximal humerus. The glenoid was then exposed. The glenosphere was then removed. The glenoid baseplate was grossly loose. This was not expected. 4 of the 5 screws were grossly loose and backing out. Decision was made to remove the glenoid baseplate. The screws were removed and the baseplate was easily removed. This left a central defect in the glenoid. Time was spent debriding all soft tissue getting down to a good bone bed. The remaining surrounding soft tissues were meticulously debrided. A 3-minute lavage of Dakin's solution was then done. The wound was then irrigated with 3 L normal saline solution. The shoulder was then scrubbed with a Betadine scrub brush. A 3-minute dilute Betadine lavage was then done. The wound was then irrigated with 3 L of normal saline solution. Another Betadine scrub brush was used. The shoulder was then irrigated with the final 3 L of normal saline solution by pulse lavage. At this point some drapes were changed all new irrigation, Bovie's, and suctions were opened. A new sterile table was brought in and all gloves were changed. The wound was once again irrigated. The glenoid was then exposed. A decision was made to graft the glenoid and convert to a hemiarthroplasty. The glenoid defect was then grafted with DBX chips and DBX putty. I was able to fill the entire defect. The proximal humerus was then exposed. Several humeral heads were trialed. A size 50 x 24 fully eccentric humeral head seem to be the best fit and give the most stability. The final size 50 x 24 mm head was then impacted into place. The shoulder was then reduced. The shoulder was brought through full range of motion. A final irrigation was done of the wound. A drain was placed. The deltopectoral interval was closed with 2-0 Vicryl. Skin was closed with 3-0 Vicryl and stap les. She was then placed in a soft dressing and a regular arm sling. She was then extubated and transferred to a hospital bed. She was taken to the postanesthesia care unit in stable condition. She tolerated the procedure well. Michael Garner PA-C, was present for the entire procedure. He was critical for patient positioning, prepping, draping, retraction exposure, wound closure and application of sterile dressing. I attest to the content of the Intraoperative Record and any orders documented therein. Any exceptions are noted below.
[2023-08-17] MEDS: HYDROmorphone INJ 1 MG/ML SYRINGE IV PRN ×7 (16:09→16:40)
--- NOTE | 2023-08-17 16:56 | XRay Report ---
XR shoulder LT min 2V routine HISTORY: 72 years-old Female Post shoulder surgery left shoulder arthroplasty COMPARISON: 06/25/2023 TECHNIQUE: 2 views of the left shoulder FINDINGS: Total joint arthroplasty with overlying skin cate. Surgical drainage catheter. Expected postoperat [place] soft tissue swelling without acute fracture. IMPRESSION: Left shoulder arthroplasty with expected postoperative changes. ACT 112: Negative or not required by law. The above report was generated using voice recognition software. It may contain grammatical, syntax o r spelling errors. Electronically signed by: Tejas Chong M.D. 08/17/2023 4:54 PM
--- NOTE | 2023-08-17 17:06 | Anesthesiology Progress Note ---
Date of Service August 17, 2023 Anesthesia Post Procedure Vital Signs Vital Signs: Temp Pulse Pulse Resp BP Pulse Ox O2 Del Method 08/17/23 17:00 68 20 153/60 H 93 Room Air 08/17/23 16:50 36.5 C 66 17 146/63 H 95 Nasal Cannula 08/17/23 16:30 69 17 142/48 H 100 Oxymask 08/17/23 16:20 71 21 130/89 99 Oxymask 08/17/23 16:10 68 16 128/64 99 Oxymask 08/17/23 16:40 69 15 149/61 H 100 Room Air 08/17/23 16:03 36.6 C 67 15 155/67 H 100 Oxymask 08/17/23 11:54 36.6 C 63 20 175/81 H 100 Room Air O2 Flow Rate 08/17/23 17:00 3 08/17/23 16:50 3 08/17/23 16:30 2 08/17/23 16:20 4 08/17/23 16:10 4 08/17/23 16:40 08/17/23 16:03 6 08/17/23 11:54 Pain Intensity Left Shoulder: Pain Intensity: 6 Transfer of Care Handoff Completed per policy Notes Mental Status: alert / awake / arousable Patient Amnestic to Procedure: Yes Nausea / Vomiting: adequately controlled Pain: adequately controlled Airway Patency, RR, SpO2: stable & adequate BP & HR: stable & adequate Hydration State: stable & adequate Anesthetic Complications: no major complications apparent
[2023-08-17] MEDS ORDERED: SUMAtriptan succinate 100 MG TAB PO PRN (18:13)
[2023-08-17] MEDS ORDERED: METOCLOPRAMIDE HCL INJ 5 MG/ML 2 ML VIAL IV PRN (18:13)
[2023-08-17] MEDS ORDERED: VANCOMYCIN CONSULT ACTIVE PRN (18:13)
[2023-08-17] MEDS ORDERED: bisacodyL 10 MG SUPP PR PRN (18:13)
[2023-08-17] MEDS ORDERED: NALOXONE HCL 0.4 MG/1 ML VIAL/CARP IV PRN (18:13)
[2023-08-17] MEDS ORDERED: FLUTICASONE PROPIONATE NA SPR 16 GM BTL PRN (18:13)
[2023-08-17] MEDS ORDERED: SPIRONOLACTONE 25 MG TAB PO PRN (18:13)
[2023-08-17] MEDS: oxyCODONE HCL IR 5 MG TAB (IMMEDIATE RELEASE) PO PRN (18:23)
[2023-08-17] MEDS: SODIUM CHLORIDE 0.9% 1,000 ML IV SCH (18:25)
[2023-08-17] MEDS: cefTRIAXone SODIUM 1,000 MG in DEXTROSE 5 % MINI-B 50 ML IV SCH (19:53)
[2023-08-17] MEDS: buPROPion SR 150 MG TABCR PO SCH (19:54)
[2023-08-17] MEDS: GABAPENTIN 300 MG CAP PO SCH (19:54)
[2023-08-17] MEDS: SENNA 8.6 MG TAB PO SCH (19:54)
[2023-08-17] MEDS: DOCUSATE SODIUM 100 MG CAP PO SCH (19:54)
[2023-08-17] MEDS: ACETAMINOPHEN 500 MG TAB PO SCH (19:55)
[2023-08-18] MEDS ORDERED: VANCOMYCIN HCL 1,000 MG in SODIUM CHLORIDE 0.9% 500 ML IV SCH (02:15)
[2023-08-18] MEDS ORDERED: VANCOMYCIN HCL 1,000 MG in SODIUM CHLORIDE 0.9% 250 ML IV SCH (02:15)
[2023-08-18] MEDS: oxyCODONE HCL IR 5 MG TAB (IMMEDIATE RELEASE) PO PRN ×3 (02:42→18:13)
[2023-08-18] MEDS: ACETAMINOPHEN 500 MG TAB PO SCH ×3 (05:49→21:16)
[2023-08-18] MEDS: LEVOTHYROXINE SODIUM 88 MCG TABLET PO SCH (05:49)
[2023-08-18] MEDS: SODIUM CHLORIDE 0.9% 1,000 ML IV SCH (06:23)
[2023-08-18 06:30] LABS: Basophils # (auto) 0.02 K/uL (0.00-0.20); Basophils % (auto) 0.2 %; Eosinophils # (auto) 0.01 K/uL (0.00-0.50); Eosinophils % (auto) 0.1 %; Hematocrit (blood only) 22.3 % (37.0-47.0); Hemoglobin 7.1 g/dl (12.0-16.0); Immature Granulocytes # (auto) 0.04 K/uL (0.01-0.20); Immature Granulocytes % (auto) 0.4 %; Lymphocytes # (auto) 0.92 K/uL (1.20-3.40); Lymphocytes % (auto) 9.1 %; Mean Corpuscular Hemoglobin 23.6 pg (25.0-34.0); Mean Corpuscular Hgb Conc 31.8 g/dL (32.0-36.0); Mean Corpuscular Volume 74.1 fL (80.0-100.0); Mean Platelet Volume 9.9 fL (9.4-12.4); Monocytes # (auto) 0.77 K/uL (0.11-0.59); Monocytes % (auto) 7.6 %; Neutrophils # (auto) 8.33 K/uL (1.40-6.50); Neutrophils % (auto) 82.6 %; Platelet Count 398 K/uL (130-400); Red Blood Count 3.01 M/uL (4.20-5.40); White Blood Count 10.09 K/ul (4.8-10.8)
[2023-08-18 06:59] LABS: BUN Creatinine Ratio 20.4 (10-20); Creatinine Clr Calc Pharmacy 48.1 ml/min; Est GFR (African American) 67.7 ml/min; Est GFR (Non-African American) 58.4 ml/min; Potassium 4.4 mmol/L (3.5-5.1)
[2023-08-18 07:01] LABS: RBC Morphology Unremarkable
[2023-08-18] MEDS: HYDROmorphone INJ 0.5 MG/0.5 ML SYR IV PRN ×4 (07:29→21:26)
--- NOTE | 2023-08-18 08:05 | Hospitalist Consultation ---
Date of Consultation August 18, 2023 Assessment & Plan (1) Prosthetic shoulder infection: POD#1 s/p Open Irrigation and Debridement of the left shoulder with removal of the glenoid and humeral implants, bone grafting of the central defect in the glenoid, and implantation of a left shoulder hemiarthroplasty.- Michael Murray DO. EBL 100cc WBC 10.0k Hgb 10.6--> 7.1.. Acute blood loss anemia/dilutional from surgery however no significant drain output from shoulder noted Patient on B12 replacement, however appears MCV <80 since May and will check iron panel/replacement. Consider unit of blood but asymptomatic at present/no bleeding reported B12 141 in March, has been getting injections at PCP office (next due next sunday) Folate was 7 at that time ID consulted by primary service Ceftriaxone IV abx ordered Cx from OR pending Pain control/bowel regimen/PT/OT per primary service Eliquis to resume today for DVT prophylaxis (had been held x 3 days, hx DVT/PE) Monitor labs in AM *Pt taking NSAIDs while on eliquis -- see below under anemia. (2) Anemia: Prior hgbs in the 12range in January but since February have been continuing to be int he 9s (was placed on eliquis for DVT/PE following b/l TKA in February) Hgb 7.1 from 10.6 pre-op, acute blood loss anemia from surgery in patient on AC (but was held x 3 days prior) and some dilutional aspect from IVF post-op, however patient w/ recent B12 level to 141 (getting B12 injections w/ PCP) and patient reported prior low iron but not on replacement while getting B12 figured out. She denies any abdominal pain/blood in urine or stool at present Interestingly, of note, patient was taking NSAIDs while on her anticoagulation w/ afib for dvt/pe and reports she was never told to not take NSAIDs on such No increased reflux/abd pain reported, hx reflux and stable on PPI therapy which has been continued No CP/SOB/lightheadedness reported but instructed to alert nursing if occurs Checking iron panel/consider IV replacement vs starting PO (ensure proper bowel regiment o prevent constipation if oral). will add fecal occult for completeness given NSAId use/consider increased PPI to BID Discussed to AVOID NSAIDS while on anticoagulation. Monitor for any bleeding. Monitor CBC in AM (3) History of pulmonary embolus (PE): Post-op b/l knee replacement (02/2023) Eliquis resuming today (had been held x 3 days prior to surgery). SCDs/valerie hose in meantime 96% on RA (4) Hypertension: BP 122/66 Continues spironolactone 25mg daily (prior was on more medications but issues w/ syncope, doing great since only on spironolactone. following w/ Kip nkechi) Monitor (5) Hyperlipidemia: not on statin (6) Hypothyroidism: TSH wnl on recent check - continue synthroid (7) Prediabetes: A1c 5.8 most recently, not on any home medications Add BSG AC/HS while inpatient Notify provider if any elevations and can add SSI but suspect elevation 2nd to steroids w/ surgery Plan Thank you for allowing hospitalist service to participate in the care of Ms Monzon. Hospitalist service will follow along. Please call with any questions/concerns. Supervising Physician Co-Signing Physician Notes During face to face encounter, I obtained a brief physical examination, and history of present illness I discussed plan of care with patient ALFONSO Mejia. I reviewed above note and agree with it except for the following: Patient consulted under medical service for infected prostethtic shoulder. Patient on ceftriaxone, will consult infectious disease. awaiting cultures History of Present Illness Reason for Consultation: post-op medical management Requesting Physician: Dr Murray Attending Physician: Michael Murray, History of Present Illness 72yo female with PMHx significant for HTN, HLD, PAC/PVCs, pre-DM, hypothy roidism, anxiety/depression, migraine, b/l TKA in February complicated DVT and R sided PE, s/p reverse TSA on 06/25/[address] Murray who presented for ongoing issues with her shoulder surgery -- had been having drainage from inferior aspect of incision requiring dressing changes several times daily, initially clear--> yellow. Was started on PO Doxy/Bactrim w/ improvement but then noticed abscess over anterior aspect of the shoulder with decreased ROM and increased pain and presented for Open Irrigation and Debridement of the left shoulder with removal of the glenoid and humeral implants, bone grafting of the central defect in the glenoid, and implantation of a left shoulder hemiarthroplasty with Michael Murray on 08/17. EBL 100cc. She is sitting up in bed in room 317, no acute distress. Pain controlled w/ IV medication and using oxyodone in between. Denies SOB/CP but discussed hgb drop. She has been getting B12 w/ PCP monthly, due next Sunday. She notes her iron has been low but had not been on replacement (but her has gotten replacement). She notes she had been taking 2 tylenol w/ 600mg ibuprofen about every 6-8 hours at home. Discussed monitoring for bleeding on anticoagulation. Of note, discussed NSAIDs use on anticoagulation with eliquis. She notes she had never been told not to take NSAIDs while on anticoagulation. Denies any blood in urine/stool. Hx reflux and controlled on PPI therapy at present but discussed to monitor. Discussed eliquis for hx DVT/PE -- reports had held x 3 days, resuming today per primary. On gabapentin for hx migraines, discussed decreasing dose given renal function and to alert of any migraine symptoms. She was seen by Dr Murray this morning. She is aware continued inpatient stay for ID consultation. Allergies Allergy/AdvReac Type Severity Reaction Status Date / Time Sulfa (Sulfonamide AdvReac Intermediate nausea Verified 08/17/23 12:00 Antibiotics) Home Medications Medication Instructions Recorded Confirmed Type levothyroxine 88 mcg tablet 88 mcg PO .COMPLEX #90 tabs 03/03/22 08/17/23 Rx fluticasone propionate 50 2 spray intranasal DAILY PRN Nasal 04/24/22 08/17/23 History mcg/actuation nasal Congestion spray,suspension levothyroxine 100 mcg tablet 100 mcg PO .COMPLEX #90 tabs 12/15/22 08/17/23 Rx gabapentin 300 mg capsule 900 mg PO TID migraines 01/24/23 08/17/23 History pantoprazole 40 mg tablet,delayed 40 mg PO QAM 01/24/23 08/17/23 History release (Protonix) sumatriptan succinate 100 mg tablet 100 mg PO ONCE PRN migraines #20 04/13/23 08/17/23 Rx tabs bupropion HCl 150 mg tablet,12 hr 150 mg PO BID #180 ea 05/21/23 08/17/23 Rx sustained-release (Wellbutrin SR) cyanocobalamin (vitamin B-12) 1,000 mcg IM .COMPLEX #300 mL 05/25/23 08/17/23 Rx 1,000 mcg/mL injection solution celecoxib 200 mg capsule (Celebrex) 200 mg PO Q12H PRN pain #30 caps 06/25/23 08/17/23 Rx spironolactone 25 mg tablet 25 mg PO HS PRN Hypertension #90 07/23/23 08/17/23 Rx tabs hydromorphone 2 mg tablet 2 mg PO Q4H PRN pain #60 tabs 08/21/23 Rx (Dilaudid) enoxaparin 60 mg/0.6 mL 60 mg (0.6 mL) subcut Q12H #6 mL 08/22/23 Rx subcutaneous syringe rifampin 300 mg capsule 300 mg PO BID #60 caps 08/22/23 Rx warfarin 5 mg tablet 5 mg PO DAILY@1600 #30 tabs 08/22/23 Rx nafcillin 2 gram/100 mL in 12 g IV .COMPLEX 08/23/23 History dextrose(iso-osmotic) intravenous piggyback Patient History Medical History Allergic rhinitis Anemia Anxiety and depression B12 deficiency History of pulmonary embolus (PE) Post-op b/l knee replacement (02/2023) Hyperlipidemia no current medications Hypertension Hypotension Possibly "pain related episodes" Hypothyroidism Insomnia Migraine headache Osteoarthritis Paroxysmal atrial tachycardia Post op infection left shoulder Prediabetes PVC's (premature ventricular contractions) Surgical History History of bilateral knee replacement History of carpal tunnel surgery R/L History of colonoscopy History of open reduction and internal fixation (ORIF) procedure Right ankle S/P rotator cuff repair Left shoulder Difficulty with post-op pain management* S/P tonsillectomy Status post reverse total replacement of left shoulder Family History Father Hypertension Multiple myeloma Mother Esophageal cancer Other No family history of adverse response to anesthesia Denies family history of Ovarian cancer Prostate cancer Myocardial infarction Breast cancer Colorectal cancer Social History Smoking Status: Never smoker Second Hand Exposure: No; Do You Dip or Chew Tobacco: No; Hx Alcohol Use: No Hx Substance Use: No Preferred Language: [place] Communication Ability: Effective Visual Impairment: No Limitations Hearing Ability: Normal Key Account Executive Required: No Beliefs That Will Affect Care: None marital status: Current Living Situation: Spouse current occupational status: employed current occupation: parttime at [employer] How many Children do You have: 2 How many Children do You have Comment: adopted special needs children Feels Safe at Home: Yes Childhood Exposure to Second-Hand Smoke: No Diet: regular Diet Comment: Regular caffeine: No during the past year weight has: remained stable Dental Care, Regularly: Yes Physical Activity Frequency: 3-4 Times per Week Physical Activity Frequency Comment: Walking Seatbelt Use: always Sunscreen Use: Yes Assistive Devices: None Review of Systems Review of Systems: All systems reviewed & are unremarkable except as noted in HPI & below Physical Exam Physical Exam: General: WD/WN female sitting up in bed, NAD, reporting some L shoulder pain but controlled with ordered medications HEENT; head normocephalic, atraumatic, mmm, trachea midline Resp; CTA, no w/c/r, on room air CV: RRR, no significant m/r/g, no pitting edema/calf tenderness (SCDs in place), pulses palpable GI: +BS, soft/NT MSK/Neuro: dressing to L shoulder intact, c/d/i, drain noted, no significant erythema, director payer strength equal bilaterally, pulses palpable, sensation intact Psych: AOx3, cooperative with exam Results & Data Results & Data Vital Signs (Past 12 Hours) Vital Signs Temp Pulse Resp BP Pulse Ox O2 Del Method O2 Flow Rate 08/18/23 07:20 36.5 C 69 16 122/66 100 Room Air 08/18/23 04:00 36.6 C 79 18 110/62 100 Room Air 08/17/23 19:50 Nasal Cannula 2 08/18/23 00:06 36.5 C 73 18 117/60 98 Room Air Laboratory Results 08/18/23 08/18/23 Range/Units 05:52 05:52 WBC 10.09 (4.8-10.8) K/ul RBC 3.01 L (4.20-5.40) M/uL Hgb 7.1 L (12.0-16.0) g/dl Hct 22.3 L (37.0-47.0) % MCV 74.1 L (80.0-100.0) fL MCH 23.6 L (25.0-34.0) pg MCHC 31.8 L (32.0-36.0) g/dL RDW Std Deviation 48.0 H (36.4-46.3) fL RDW Coeff of Jaxson 18.0 H (11.5-14.5) % Plt Count 398 (130-400) K/uL MPV 9.9 (9.4-12.4) fL Immature Gran % (Auto) 0.4 % Neut % (Auto) 82.6 % Lymph % (Auto) 9.1 % [place] % (Auto) 7.6 % Eos % (Auto) 0.1 % Baso % (Auto) 0.2 % Neut # (Auto) 8.33 H (1.40-6.50) K/uL Lymph # (Auto) 0.92 L (1.20-3.40) K/uL [place] # (Auto) 0.77 H (0.11-0.59) K/uL Eos # (Auto) 0.01 (0.00-0.50) K/uL Baso # (Auto) 0.02 (0.00-0.20) K/uL Immature Gran # (Auto) 0.04 (0.01-0.20) K/uL RBC Morphology Unremarkable Sodium 132 L (136-145) mmol/L Potassium 4.4 (3.5-5.1) mmol/L Chloride 105 (98-107) mmol/L Carbon Dioxide 22 (21-32) mmol/L Anion Gap 5 (3-11) BUN 20 (6-23) mg/dl Creatinine 0.98 (0.6-1.2) mg/dl Est Cr Clr Drug Dosing 48.1 ml/min Est GFR ( Amer) 67.7 ml/min Est GFR (Non-Af Amer) 58.4 ml/min BUN/Creatinine Ratio 20.4 H (10-20) Glucose 136 H (70-99(Fasting)) mg/dl Calcium 8.0 L (8.6-10.3) mg/dl Diagnostic Findings Shoulder X-Ray 08/17/23 16:09 XR shoulder LT min 2V routine HISTORY: 72 years-old Female Post shoulder surgery left shoulder arthroplasty COMPARISON: 06/25/2023 TECHNIQUE: 2 views of the left shoulder FINDINGS: Total joint arthroplasty with overlying skin cate. Surgical drainage catheter. Expected postoperative soft tissue swelling without acute fracture. IMPRESSION: Left shoulder arthroplasty with expected postoperative changes. ACT 112: Negative or not required by law. The above report was generated using voice recognition software. It may contain grammatical, syntax or spelling errors. Electronically signed by: Tejas Chong M.D. 08/17/2023 4:54 PM PG Care Time/CCT Total # of Minutes Spent Total Time Spent with Patient: Total time spent is greater than 50% in coordination of care (as documented) at patient's floor/unit and/or counseling patient: Coding Level of Care Code 11678 IN/OBS CONSULT LVL 4,60M Diagnoses Prosthetic shoulder infection T84.59XA; Z96.619 Anemia D64.9 History of pulmonary embolus (PE) Z86.711 Hypertension I10 Hyperlipidemia E78.5 Hypothyroidism E03.9 Prediabetes R73.03
[2023-08-18] MEDS: DOCUSATE SODIUM 100 MG CAP PO SCH ×2 (08:19→21:16)
[2023-08-18] MEDS: APIXABAN 5 MG TABLET PO SCH ×2 (08:19→21:16)
[2023-08-18] MEDS: MULTIVITAMIN TAB PO SCH (08:19)
[2023-08-18] MEDS: GABAPENTIN 300 MG CAP PO SCH ×3 (08:19→21:16)
[2023-08-18] MEDS: buPROPion SR 150 MG TABCR PO SCH ×2 (08:19→21:17)
--- NOTE | 2023-08-18 09:25 | Orthopedic Progress Note ---
Date of Service August 18, 2023 Assessment & Plan (1) Prosthetic shoulder infection: I went over the procedure with her in detail as well as postoperative expectations. The initial Gram stain has shown some gram-positive cocci. It is likely a staph species. She is currently on ceftriaxone and we will add r ifampin to prevent any biofilm on the prosthesis. The hospitalist has been consulted and is following her postoperative anemia. Infectious disease has been consulted as well. We are still waiting final cultures and sensitivities. She will likely be in the hospital for 3 days and then discharged to home on IV antibiotics with a PICC line. Gavin Porter was seen and examined at bedside this morning. Overall she is doing okay. She is not having too much pain in the left shoulder. I went over the procedure with her in detail. She has no new complaints.. Review of Systems All systems reviewed & are unremarkable except as noted in HPI & below. Physical Exam On physical examination of left shoulder, the dressing is clean and dry. The drain is to suction. She is wearing her sling as instructed.. Results & Data Results & Data Laboratory Results . Diagnostic Findings Postoperative x-rays of the left shoulder show the prosthesis to be in good alignment.. PG Care Time/CCT Total # of Minutes Spent Total Time Spent with Patient: Total time spent is greater than 50% in coordination of care (as documented) at patient's floor/unit and/or counseling patient: Coding Level of Care Code 05997 Post Operative Follow-Up Diagnoses Prosthetic shoulder infection T84.59XA; Z96.619
[2023-08-18 09:41] LABS: Ferritin 33.3 ng/ml (8-388)
[2023-08-18] MEDS ORDERED: COUGH DROP (SUGAR FREE) LOZ 24 LOZ/1 BOX BUCCAL STA (09:51)
[2023-08-18] MEDS ORDERED: COUGH DROP (SUGAR FREE) LOZ 24 LOZ/1 BOX BUCCAL ONE (09:53)
[2023-08-18] MEDS: cefTRIAXone SODIUM 1,000 MG in DEXTROSE 5 % MINI-B 50 ML IV SCH (18:04)
[2023-08-18] MEDS ORDERED: rifAMPin 300 MG CAPSULE PO SCH (21:00)
[2023-08-18] MEDS: SENNA 8.6 MG TAB PO SCH (21:17)
[2023-08-19] MEDS: LEVOTHYROXINE SODIUM 88 MCG TABLET PO SCH (06:06)
[2023-08-19] MEDS: ACETAMINOPHEN 500 MG TAB PO SCH ×2 (06:06→14:27)
[2023-08-19] MEDS: oxyCODONE HCL IR 5 MG TAB (IMMEDIATE RELEASE) PO PRN ×2 (06:14→14:26)
[2023-08-19 06:17] LABS: Hematocrit (blood only) 23.5 % (37.0-47.0); Hemoglobin 7.2 g/dl (12.0-16.0); Mean Corpuscular Hemoglobin 23.7 pg (25.0-34.0); Mean Corpuscular Hgb Conc 30.6 g/dL (32.0-36.0); Mean Corpuscular Volume 77.3 fL (80.0-100.0); Mean Platelet Volume 9.9 fL (9.4-12.4); Platelet Count 378 K/uL (130-400); RDW Coefficient of Variation 18.1 % (11.5-14.5); RDW Standard Deviation 50.6 fL (36.4-46.3); Red Blood Count 3.04 M/uL (4.20-5.40); White Blood Count 9.61 K/ul (4.8-10.8)
--- NOTE | 2023-08-19 06:20 | Orthopedic Progress Note ---
Date of Service August 19, 2023 Assessment & Plan (1) Prosthetic shoulder infection: Overall she is doing okay. We will remove the drain tomorrow. She will be seen by infectious disease tomorrow as well. Her cultures have grown out gram- positive cocci which is likely a staph species. I stopped the rifampin because she is on Eliquis and I want to wait infectious disease recommendations. We could always switch her anticoagulant if we need to. Blood cultures are negative to date. Gavin Porter was seen and examined at bedside this morning. Overall she is doing okay. She is having some increased pain in her left shoulder today. She is on the IV antibiotics. She has no new complaints.. Review of Systems All systems reviewed & are unremarkable except as noted in HPI & below. Physical Exam On physical examination of left shoulder, the dressing is clean and dry. She is wearing her sling as instructed. The drain is to suction.. Results & Data Results & Data Laboratory Results . Diagnostic Findings . PG Care Time/CCT Total # of Minutes Spent Total Time Spent with Patient: Total time spent is greater than 50% in coordination of care (as documented) at patient's floor/unit and/or counseling patient: Coding Level of Care Code 49997 Post Operative Follow-Up Diagnoses Prosthetic shoulder infection T84.59XA; Z96.619
[2023-08-19 06:36] LABS: BUN Creatinine Ratio 24.5 (10-20); Calcium 8.4 mg/dl (8.6-10.3); Creatinine Clr Calc Pharmacy 50.1 ml/min; Est GFR (African American) 71.2 ml/min; Est GFR (Non-African American) 61.5 ml/min; Magnesium 1.9 mg/dl (1.7-2.4); Potassium 4.3 mmol/L (3.5-5.1)
[2023-08-19] MEDS: DOCUSATE SODIUM 100 MG CAP PO SCH ×2 (08:01→20:13)
[2023-08-19] MEDS: buPROPion SR 150 MG TABCR PO SCH ×2 (08:01→20:13)
[2023-08-19] MEDS: APIXABAN 5 MG TABLET PO SCH ×2 (08:01→20:13)
[2023-08-19] MEDS: MULTIVITAMIN TAB PO SCH (08:02)
[2023-08-19] MEDS: GABAPENTIN 300 MG CAP PO SCH ×3 (08:02→20:13)
--- NOTE | 2023-08-19 08:52 | Hospitalist Progress Note ---
Date of Service August 19, 2023 Assessment & Plan (1) Prosthetic shoulder infection: Plan: POD#2 s/p Open Irrigation and Debridement of the left shoulder with removal of the glenoid and humeral implants, bone grafting of the central defect in the glenoid, and implantation of a left shoulder hemiarthroplasty.- Michael Murray DO. EBL 100cc WBC wnl, afebrile Hgb dropped pre-op 10.6--> 7.1 (of note, patient had been taking NSAIDs w/ her eliquis, not aware not able to take while on anticoagulation-- counselled) acute blood loss anemia as well as some dilution from IVF w/ surgery in setting of NSAID/anticoagulation use. No significant bleeding on exam, no CP/SOB, lightheaded/dizziness reported B12 injections monthly (next Sunday due) for prior level 141 in March. Folate wnl Iron panel w/ acute on chronic disease --> discussed starting PO iron supplementation but hgb 7.2/stable on repeat and could hold off until having bowel movements to prevent constipation Cx from OR pending -- GS rare gram positive cocci, no growth on culture at present - monitor Blood cultures ordered by primary 08/18 (noting had been on abx prior to admission, IV rocephin/vanco prior to collection) Ceftriaxone continued ID consult pending for AM Pain control/bowel regimen/PT/OT per primary service Eliquis resumed AM 08/18 (hx DVT/PE following b/l knee replacements earlier this year) (2) Anemia: Plan: Prior hgbs in the 12range in January but since February have been continuing to be int he 9s (was placed on eliquis for DVT/PE following b/l TKA in February) Hgb 7.1 from 10.6 pre-op, acute blood loss anemia from surgery in patient on AC (but was held x 3 days prior) and some dilutional aspect from IVF post-op, however patient w/ recent B12 level to 141 (getting B12 injections w/ PCP) and patient reported prior low iron but not on replacement while getting B12 figured out. She denies any abdominal pain/blood in urine or stool, no lightheaded/dizziness/hypotension/CP/SOB at present Interestingly, patient was taking NSAIDs while on her anticoagulation w/ afib for dvt/pe and reports she was never told to not take NSAIDs on such PPI continued, consider increasing to BID if needed, fecal occult ordered fro completeness but patient denied any blood in urine/stool Discussed to AVOID NSAIDS while on anticoagulation Iron panel acute on chronic --> consideration for PO supplementation once moving bowels as above Hgb stable 7.2 and will monitor for now (3) History of pulmonary embolus (PE): Plan: Post-op b/l knee replacement (02/2023) SCDs/valerie hose ordred post-op, eliquis resumed AM 08/18 (held x 3 days prior to surgery) (4) Hypertension: Plan: BP 157/69, stable in setting of pain Continues spironolactone 25mg daily (prior was on more medications but issues w/ syncope, doing great since only on spironolactone. following w/ Kip nkechi) Monitor (5) Hyperlipidemia: Plan: not on statin (6) Hypothyroidism: Plan: TSH wnl on recent check - continue synthroid (7) Prediabetes: Plan: A1c 5.8 most recently, not on any home medications Add BSG AC/HS while inpatient Notify provider if any elevations and can add SSI but suspect elevation 2nd to steroids w/ surgery --> can stop BSG AC/HS checks have been stable Plan Thank you for allowing hospitalist service to participate in the care of Ms Monzon. AVOID NSAIDS WHILE ON ANTICOAGULATION -- DISCUSSED W PATIENT MOVING FORWARD TO PREVENT BLEEDING Hospitalist service will follow along. Consider starting PO iron once moving bowels Please call with any questions/concerns. Admission and Anticipated Discharge Date Admission Date: August 18, 2023 Subjective Eval this morning, doing well except some increased pain to shoulder. Had been trying to hold off IV needs overnight but pain creeping up. She notes they work quicker and wear off quicker and trying to use the IV while PO taking effect but hopefully continued improvement. Reports Dr Murray planning to remove drain tomorrow. Eliquis restarted yesterday morning. No lightheaded/dizziness, hgb improved/stable on repeat. No CP/SOB. 98% on RA Passing gas/belly rumbling, has been ambulating. Discussed iron studies/would start oral supplementation once having bowel movements but will hold off while on pain medictions to prevent constipation issues. ID consult for tomorrow. SHe is aware likely dc not until [place] depending on timing for ID consult/CM arranging for IV abx/PICC line prior to dc. Questions/concerns addressed at this time. Physical Exam Physical Exam: General: WD/WN female sitting up in bed, NAD, reporting some L shoulder pain, need for medication if due (alerted nursing) HEENT; head normocephalic, atraumatic, mmm, trachea midline Resp; CTA, no w/c/r, on room air CV: RRR, no significant m/r/g, no pitting edema/calf tenderness (SCDs in place), pulses palpable GI: +BS, soft/NT MSK/Neuro: dressing to L shoulder intact, c/d/i, drain noted, no significant erythema, newspaper manager strength equal bilaterally, pulses palpable, sensation intact Psych: AOx3, cooperative with exam Results & Data Results & Data Vital Signs (Past 12 Hours) Vital Signs Temp Pulse Resp BP Pulse Ox O2 Del Method 08/19/23 07:06 36.5 C 65 18 157/69 H 98 Room Air 08/19/23 04:55 36.7 C 69 16 130/74 96 Room Air 08/18/23 23:32 36.7 C 71 16 122/70 97 Room Air Laboratory Results 08/19/23 08/19/23 08/19/23 Range/Units 07:57 05:50 05:50 WBC 9.61 (4.8-10.8) K/ul RBC 3.04 L (4.20-5.40) M/uL Hgb 7.2 L (12.0-16.0) g/dl Hct 23.5 L (37.0-47.0) % MCV 77.3 L (80.0-100.0) fL MCH 23.7 L (25.0-34.0) pg MCHC 30.6 L (32.0-36.0) g/dL RDW Std Deviation 50.6 H (36.4-46.3) fL RDW Coeff of Jaxson 18.1 H (11.5-14.5) % Plt Count 378 (130-400) K/uL MPV 9.9 (9.4-12.4) fL Sodium 137 (136-145) mmol/L Potassium 4.3 (3.5-5.1) mmol/L Chloride 106 (98-107) mmol/L Carbon Dioxide 27 (21-32) mmol/L Anion Gap 4 (3-11) BUN 23 (6-23) mg/dl Creatinine 0.94 (0.6-1.2) mg/dl Est Cr Clr Drug Dosing 50.1 ml/min Est GFR ( Amer) 71.2 ml/min Est GFR (Non-Af Amer) 61.5 ml/min BUN/Creatinine Ratio 24.5 H (10-20) Glucose 112 H (70-99(Fasting)) mg/dl POC Glucose 114 H (70-99) mg/dl Calcium 8.4 L (8.6-10.3) mg/dl Magnesium 1.9 (1.7-2.4) mg/dl Iron (35-150) mcg/dl TIBC (250-450) mcg/dl Unsaturated IBC (155-355) mcg/dl Transferrin % Sat (15-50) % Ferritin (8-388) ng/ml Folate (>5.38) ng/ml 08/18/23 08/18/23 08/18/23 Range/Units 23:36 05:52 05:52 WBC (4.8-10.8) K/ul RBC (4.20-5.40) M/uL Hgb (12.0-16.0) g/dl Hct (37.0-47.0) % MCV (80.0-100.0) fL MCH (25.0-34.0) pg MCHC (32.0-36.0) g/dL RDW Std Deviation (36.4-46.3) fL RDW Coeff of Jaxson (11.5-14.5) % Plt Count (130-400) K/uL MPV (9.4-12.4) fL Sodium (136-145) mmol/L Potassium (3.5-5.1) mmol/L Chloride (98-107) mmol/L Carbon Dioxide (21-32) mmol/L Anion Gap (3-11) BUN (6-23) mg/dl Creatinine (0.6-1.2) mg/dl Est Cr Clr Drug Dosing ml/min Est GFR ( Amer) ml/min Est GFR (Non-Af Amer) ml/min BUN/Creatinine Ratio (10-20) Glucose (70-99(Fasting)) mg/dl POC Glucose 133 H (70-99) mg/dl Calcium (8.6-10.3) mg/dl Magnesium (1.7-2.4) mg/dl Iron 11 L (35-150) mcg/dl TIBC 229 L (250-450) mcg/dl Unsaturated IBC 218 (155-355) mcg/dl Transferrin % Sat 5 L (15-50) % Ferritin 33.3 (8-388) ng/ml Folate 16.82 (>5.38) ng/ml Diagnostic Findings Shoulder X-Ray 08/17/23 16:09 XR shoulder LT min 2V routine HISTORY: 72 years-old Female Post shoulder surgery left shoulder arthroplasty COMPARISON: 06/25/2023 TECHNIQUE: 2 views of the left shoulder FINDINGS: Total joint arthroplasty with overlying skin cate. Surgical drainage catheter. Expected postoperative soft tissue swelling without acute fracture. IMPRESSION: Left shoulder arthroplasty with expected postoperative changes. ACT 112: Negative or not required by law. The above report was generated using voice recognition software. It may contain grammatical, syntax or spelling errors. Electronically signed by: Tejas Chong M.D. 08/17/2023 4:54 PM PG Care Time/CCT Total # of Minutes Spent Total Time Spent with Patient: Total time spent is greater than 50% in coordination of care (as documented) at patient's floor/unit and/or counseling patient: Coding Level of Care Code 23305 SUB INP/OBS CARE 2/35MIN Diagnoses Prosthetic shoulder infection T84.59XA; Z96.619 Anemia D64.9 History of pulmonary embolus (PE) Z86.711 Hypertension I10 Hyperlipidemia E78.5 Hypothyroidism E03.9 Prediabetes R73.03
[2023-08-19] MEDS: HYDROmorphone INJ 0.5 MG/0.5 ML SYR IV PRN ×3 (09:47→20:18)
[2023-08-19] MEDS ORDERED: ACETAMINOPHEN 500 MG TAB PO PRN (16:30)
[2023-08-19] MEDS: cefTRIAXone SODIUM 1,000 MG in DEXTROSE 5 % MINI-B 50 ML IV SCH (17:44)
[2023-08-19] MEDS: HYDROCODONE/ACETAMOPHEN 5/325MG TAB PO PRN (17:51)
[2023-08-19] MEDS: MAGNESIUM HYDROXIDE SUSP 30 ML UDC PO PRN (17:51)
[2023-08-19] MEDS: SENNA 8.6 MG TAB PO SCH (20:13)
[2023-08-20] MEDS: HYDROmorphone INJ 0.5 MG/0.5 ML SYR IV PRN ×4 (02:03→21:23)
[2023-08-20] MEDS: LEVOTHYROXINE SODIUM 100 MCG TABLET PO SCH (06:05)
[2023-08-20] MEDS: HYDROCODONE/ACETAMOPHEN 5/325MG TAB PO PRN ×2 (06:09→10:00)
[2023-08-20] MEDS: APIXABAN 5 MG TABLET PO SCH ×2 (08:09→21:16)
[2023-08-20] MEDS: GABAPENTIN 300 MG CAP PO SCH ×3 (08:09→21:17)
[2023-08-20] MEDS: buPROPion SR 150 MG TABCR PO SCH ×2 (08:09→21:16)
[2023-08-20] MEDS: DOCUSATE SODIUM 100 MG CAP PO SCH ×2 (08:10→21:16)
[2023-08-20] MEDS: MULTIVITAMIN TAB PO SCH (08:10)
[2023-08-20 11:17] LABS: Basophils # (auto) 0.05 K/uL (0.00-0.20); Basophils % (auto) 0.6 %; Eosinophils # (auto) 0.48 K/uL (0.00-0.50); Eosinophils % (auto) 5.3 %; Hematocrit (blood only) 23.5 % (37.0-47.0); Hemoglobin 7.3 g/dl (12.0-16.0); Immature Granulocytes # (auto) 0.04 K/uL (0.01-0.20); Immature Granulocytes % (auto) 0.4 %; Lymphocytes # (auto) 2.03 K/uL (1.20-3.40); Lymphocytes % (auto) 22.5 %; Mean Corpuscular Hemoglobin 23.5 pg (25.0-34.0); Mean Corpuscular Hgb Conc 31.1 g/dL (32.0-36.0); Mean Corpuscular Volume 75.6 fL (80.0-100.0); Mean Platelet Volume 9.6 fL (9.4-12.4); Monocytes # (auto) 0.76 K/uL (0.11-0.59); Monocytes % (auto) 8.4 %; Neutrophils # (auto) 5.66 K/uL (1.40-6.50); Neutrophils % (auto) 62.8 %; Platelet Count 422 K/uL (130-400); RDW Coefficient of Variation 18.6 % (11.5-14.5); RDW Standard Deviation 51.1 fL (36.4-46.3); Red Blood Count 3.11 M/uL (4.20-5.40); White Blood Count 9.02 K/ul (4.8-10.8)
[2023-08-20 11:28] LABS: BUN Creatinine Ratio 21.3 (10-20); Calcium 8.7 mg/dl (8.6-10.3); Creatinine Clr Calc Pharmacy 58.9 ml/min; Est GFR (African American) 86.6 ml/min; Est GFR (Non-African American) 74.7 ml/min; Potassium 3.8 mmol/L (3.5-5.1)
[2023-08-20 11:42] LABS: Hypochromasia Present
[2023-08-20] MEDS: MAGNESIUM HYDROXIDE SUSP 30 ML UDC PO PRN (13:16)
--- NOTE | 2023-08-20 16:44 | Orthopedic Progress Note ---
Date of Service August 20, 2023 Assessment & Plan (1) Prosthetic shoulder infection: The cultures have grown out a staph species but sensitivities are not back yet. A PIC line consent has been done and blood cultures are negative at 48 hours. She will hopefully be seen by infectious disease tomorrow and given antibiotic recommendations. She can have the PICC line then placed tomorrow. She can be discharged to home tomorrow if she has antibiotics set up and she is stable. We will see how she does. Gavin Porter was seen and examined at bedside this morning. Overall she is doing okay. Her pain is a little bit better today. The cultures have come back but the sensitivities have not come back yet. She has not yet been seen by infectious disease.. Review of Systems All systems reviewed & are unremarkable except as noted in HPI & below. Physical Exam On physical examination of the left shoulder, the dressing is clean and dry. The drain was removed today. She has active motion of her hand and her wrist.. Results & Data Results & Data Laboratory Results . Diagnostic Findings . PG Care Time/CCT Total # of Minutes Spent Total Time Spent with Patient: Total time spent is greater than 50% in coordination of care (as documented) at patient's floor/unit and/or counseling patient: Coding Level of Care Code 49194 Post Operative Follow-Up Diagnoses Prosthetic shoulder infection T84.59XA; Z96.619
--- NOTE | 2023-08-20 16:47 | Infectious Disease Consult ---
Date of Consultation August 20, 2023 Assessment & Plan (1) Prosthetic shoulder infection: Plan #Infected PJI # I+D of the left shoulder with removal of the glenoid and humeral implants on 08/17, OR Culture Staph aureus 72yo F with h/o HTN, HLD, PAC/PVCs, anxiety/depression, migraine, b/l TKA 02/2023, DVT and PE who underwent reverse total shoulder arthroplasty on 06/25/[address] Murray admitted with drainage. Post arthroplasty, patient noticed increased drainage and took oral antibiotics doxycycline and Bactrim. However pain and decreased function continued and she was admitted on under Dr. Addison care. On 08/17 she underwent open I+D of the left shoulder with removal of the glenoid and humeral implants, bone grafting of the central defect in the glenoid, and implantation of a left shoulder hemiarthroplasty. OR cultures are growing staph aureus, no yet speciated. WBC n ormal 08/18 Blood cultures are no growth. WBC normal. Cr normal. Post op Xray showed Left shoulder arthroplasty with expected postoperative changes. Patient currently on Ceftriaxone. RECOMMEND: -Will add Daptomycin 8mg/kg IV daily, check baseline CPK -PICC line, anticipate 6 weeks of therapy through 09/28/23 -Staph aureus speciation tomorrow hopefully and we will either plan for Daptomcyin vs Cefazolin/Nafcillin -DC Ceftriaxone Kusum Garcia MD Infectious Diseases Consultation Information This patient recommendation is based on a telemedicine consult request which was completed asynchronously through chart review and information provided by the primary physician. The patient was not seen or examined today. The evaluation is consultative in nature and all patient care and treatment decisions can either be accepted or rejected by the patient's primary hospital-based treating physician using their own independent medical judgment for their patient. Film Technician contact information: Please call [facility] . (Phone Number For Physician Use Only) Time Spent Reviewing Chart: 31+ minutes History of Present Illness Reason for Consultation: Joint infection Requesting Physician: Dr. Murray Attending Physician: Michael Murray, DO History of Present Illness 72yo F with h/o HTN, HLD, PAC/PVCs, anxiety/depression, migraine, b/l TKA 02/2023, DVT and PE who underwent reverse total shoulder arthroplasty on 06/25/[address] Murray admitted with drainage. Post arthroplasty, patient noticed increased drainage and took oral antibiotics doxycycline and Bactrim. However pain and decreased function continued and she was admitted on under Dr. Addison care. On 08/17 she underwent open I+D of the left shoulder with removal of the glenoid and humeral implants, bone grafting of the central defect in the glenoid, and implantation of a left shoulder hemiarthroplasty. OR cultures are growing staph aureus, no yet speciated. WBC normal 08/18 Blood cultures are no growth. WBC normal. Cr normal. Post op Xray showed Left shoulder arthroplasty with expected postoperative changes. Patient currently on Ceftriaxone. Allergies Allergy/AdvReac Type Severity Reaction Status Date / Time Sulfa (Sulfonamide AdvReac Intermediate nausea Verified 08/17/23 12:00 Antibiotics) Home Medications Medication Instructions Recorded Confirmed Type levothyroxine 88 mcg tablet 88 mcg PO .COMPLEX #90 tabs 03/03/22 08/17/23 Rx fluticasone propionate 50 2 spray intranasal DAILY PRN Nasal 04/24/22 08/17/23 History mcg/actuation nasal Congestion spray,suspension levothyroxine 100 mcg tablet 100 mcg PO .COMPLEX #90 tabs 12/15/22 08/17/23 Rx gabapentin 300 mg capsule 900 mg PO TID migraines 01/24/23 08/17/23 History pantoprazole 40 mg tablet,delayed 40 mg PO QAM 01/24/23 08/17/23 History release (Protonix) sumatriptan succinate 100 mg tablet 100 mg PO ONCE PRN migraines #20 04/13/23 08/17/23 Rx tabs bupropion HCl 150 mg tablet,12 hr 150 mg PO BID #180 ea 05/21/23 08/17/23 Rx sustained-release (Wellbutrin SR) cyanocobalamin (vitamin B-12) 1,000 mcg IM .COMPLEX #300 mL 05/25/23 08/17/23 Rx 1,000 mcg/mL injection solution apixaban 5 mg tablet (Eliquis) 5 mg PO BID #60 tabs 06/08/23 08/17/23 Rx celecoxib 200 mg capsule (Celebrex) 200 mg PO Q12H PRN pain #30 caps 06/25/23 08/17/23 Rx oxycodone-acetaminophen 5 mg-325 1 tab PO Q6H PRN pain #30 tabs 06/25/23 08/17/23 Rx mg tablet (Percocet) oxycodone-acetaminophen 5 mg-325 1 tab PO Q6H PRN pain #30 tabs 07/11/23 08/17/23 Rx mg tablet (Percocet) spironolactone 25 mg tablet 25 mg PO HS PRN Hypertension #90 07/23/23 08/17/23 Rx tabs doxycycline hyclate 100 mg tablet 100 mg PO BID 10 days #20 tabs 07/24/23 08/17/23 Rx sulfamethoxazole 800 1 tab PO Q12H 7 days #14 tabs 07/24/23 08/17/23 Rx mg-trimethoprim 160 mg tablet (Bactrim DS) oxycodone 5 mg tablet 5 mg PO Q6 PRN pain #30 tabs 08/14/23 08/17/23 Rx sulfamethoxazole 800 1 tab PO Q12H #10 tabs 08/14/23 08/17/23 Rx mg-trimethoprim 160 mg tablet (Bactrim DS) Patient History Medical History Allergic rhinitis Anemia Anxiety and depression B12 deficiency History of pulmonary embolus (PE) Post-op b/l knee replacement (02/2023) Hyperlipidemia no current medications Hypertension Hypotension Possibly "pain related episodes" Hypothyroidism Insomnia Migraine headache Osteoarthritis Paroxysmal atrial tachycardia Post op infection left shoulder Prediabetes PVC's (premature ventricular contractions) Surgical History History of bilateral knee replacement History of carpal tunnel surgery R/L History of colonoscopy History of open reduction and internal fixation (ORIF) procedure Right ankle S/P rotator cuff repair Left shoulder Difficulty with post-op pain management* S/P tonsillectomy Status post reverse total replacement of left shoulder Family History Father Hypertension Multiple myeloma Mother Esophageal cancer Other No family history of adverse response to anesthesia Denies family history of Ovarian cancer Prostate cancer Myocardial infarction Breast cancer Colorectal cancer Social History Smoking Status: Never smoker Second Hand Exposure: No; Do You Dip or Chew Tobacco: No; Tobacco Cessation Education Requested by Patient: No Hx Alcohol Use: No Hx Substance Use: No Preferred Language: Georgian Communication Ability: Effective Visual Impairment: No Limitations Hearing Ability: Normal Crown And Bridge Technician Required: No Beliefs That Will Affect Care: None marital status: Current Living Situation: Spouse current occupational status: employed current occupation: parttime at [employer] How many Children do You have: 2 How many Children do You have Comment: adopted special needs children Other Information That Helps Us Care for You: No Feels Safe at Home: Yes Safety Concerns: Feels Safe At This Time Childhood Exposure to Second-Hand Smoke: No Diet: regular Diet Comment: Regular caffeine: No during the past year weight has: remained stable Dental Care, Regularly: Yes Physical Activity Frequency: 3-4 Times per Week Physical Activity Frequency Comment: Walking Seatbelt Use: always Sunscreen Use: Yes Assistive Devices: None Results & Data Vital Signs (Past 12 Hours) Vital Signs Temp Pulse Resp BP Pulse Ox O2 Del Method 08/20/23 13:53 37.0 C 62 15 155/85 H 95 Room Air 08/20/23 07:32 37.2 C 60 16 171/79 H 97 Room Air Laboratory Results Laboratory Results - last 48 hr 08/18/23 08/19/23 08/19/23 23:36 05:50 05:50 WBC 9.61 RBC 3.04 L Hgb 7.2 L Hct 23.5 L MCV 77.3 L MCH 23.7 L MCHC 30.6 L RDW Std Deviation 50.6 H RDW Coeff of Jaxson 18.1 H Plt Count 378 MPV 9.9 Immature Gran % (Auto) Neut % (Auto) Lymph % (Auto) Howard % (Auto) Eos % (Auto) Baso % (Auto) Neut # (Auto) Lymph # (Auto) Howard # (Auto) Eos # (Auto) Baso # (Auto) Immature Gran # (Auto) Hypochromasia Sodium 137 Potassium 4.3 Chloride 106 Carbon Dioxide 27 Anion Gap 4 BUN 23 Creatinine 0.94 Est Cr Clr Drug Dosing 50.1 Est GFR ( Amer) 71.2 Est GFR (Non-Af Amer) 61.5 BUN/Creatinine Ratio 24.5 H Glucose 112 H POC Glucose 133 H Calcium 8.4 L Magnesium 1.9 08/19/23 08/20/23 08/20/23 07:57 10:47 10:47 WBC 9.02 RBC 3.11 L Hgb 7.3 L Hct 23.5 L MCV 75.6 L MCH 23.5 L MCHC 31.1 L RDW Std Deviation 51.1 H RDW Coeff of Jaxson 18.6 H Plt Count 422 H MPV 9.6 Immature Gran % (Auto) 0.4 Neut % (Auto) 62.8 Lymph % (Auto) 22.5 Howard % (Auto) 8.4 Eos % (Auto) 5.3 Baso % (Auto) 0.6 Neut # (Auto) 5.66 Lymph # (Auto) 2.03 Howard # (Auto) 0.76 H Eos # (Auto) 0.48 Baso # (Auto) 0.05 Immature Gran # (Auto) 0.04 Hypochromasia Present Sodium 136 Potassium 3.8 Chloride 105 Carbon Dioxide 30 Anion Gap 1 L BUN 17 Creatinine 0.80 Est Cr Clr Drug Dosing 58.9 Est GFR ( Amer) 86.6 Est GFR (Non-Af Amer) 74.7 BUN/Creatinine Ratio 21.3 H Glucose 105 H POC Glucose 114 H Calcium 8.7 Magnesium Microbiology 08/17/23 Unknown Shoulder,Left Gram Stain - Final 08/17/23 Unknown Shoulder,Left Aerobic and Anaerobic Culture - Preliminary Staphylococcus species 08/18/23 09:40 Blood Aerobic Blood Culture - Preliminary No growth in Aerobic bottle after 48 hours. 08/18/23 09:40 Blood Anaerobic Blood Culture - Preliminary No growth in Anaerobic bottle after 48 hours. 08/18/23 09:34 Blood Aerobic Blood Culture - Preliminary No growth in Aerobic bottle after 48 hours. 08/18/23 09:34 Blood Anaerobic Blood Culture - Preliminary No growth in Anaerobic bottle after 48 hours. Medications Administered Current Inpatient Medications Acetaminophen (Acetaminophen 500 Mg Tab) 1,000 mg PO Q8 PRN PRN Reason: mild pain, headache, or fever Stop: 09/16/23 21:59 Hydrocodone Bitart/Acetaminophen (Hydrocodone/Acetamophen 5/325mg Tab) 1 tab PO Q4H PRN PRN Reason: moderate to severe pain Stop: 09/02/23 16:27 Last Admin: 08/20/23 10:00 Dose: 1 tab Apixaban (Apixaban 5 Mg Tablet) 5 mg PO Q12H JOSE LUIS Stop: 09/17/23 07:59 Last Admin: 08/20/23 08:09 Dose: 5 mg Bisacodyl (Bisacodyl 10 Mg Supp) 10 mg IA DAILY PRN PRN Reason: Constipation Stop: 09/16/23 18:12 Bupropion HCl (Bupropion Sr 150 Mg Tabcr) 150 mg PO BID [facility] Stop: 09/16/23 20:59 Last Admin: 08/20/23 08:09 Dose: 150 mg Docusate Sodium (Docusate Sodium 100 Mg Cap) 100 mg PO BID [facility] Stop: 09/16/23 20:59 Last Admin: 08/20/23 08:10 Dose: 100 mg Fluticasone Propionate (Fluticasone Propionate Na Spr 16 Gm Btl) 2 sprays NA DAILY PRN PRN Reason: Nasal Congestion Stop: 09/16/23 18:12 Gabapentin (Gabapentin 300 Mg Cap) 900 mg PO TID [facility] Stop: 09/16/23 20:59 Last Admin: 08/20/23 13:16 Dose: 900 mg Hydromorphone HCl (Hydromorphone Inj 0.5 Mg/0.5 Ml Syr) 0.5 mg IV Q2H PRN PRN Reason: Pain or Pre PT Stop: 08/31/23 18:12 Last Admin: 08/20/23 13:19 Dose: 0.5 mg Ceftriaxone Sodium 1,000 mg/ (Dextrose) 50 mls @ 100 mls/hr IV Q24H [facility]; Protocol Stop: 09/28/23 18:29 Last Infusion: 08/19/23 18:20 Dose: Infused Levothyroxine Sodium (Levothyroxine Sodium 88 Mcg Tablet) 88 mcg PO SuSa@0630 [facility] Stop: 09/17/23 06:29 Last Admin: 08/19/23 06:06 Dose: 88 mcg Levothyroxine Sodium (Levothyroxine Sodium 100 Mcg Tablet) 100 mcg PO [id number]@0630 [facility] Stop: 09/19/23 06:29 Last Admin: 08/20/23 06:05 Dose: 100 mcg Magnesium Hydroxide (Magnesium Hydroxide Susp 30 Ml Udc) 30 ml PO Q6H PRN PRN Reason: Constipation Stop: 09/16/23 18:12 Last Admin: 08/20/23 13:16 Dose: 30 ml Metoclopramide HCl (Metoclopramide Hcl Inj 5 Mg/Ml 2 Ml Vial) 10 mg IV Q6H PRN PRN Reason: Nausea And Vomiting Stop: 09/16/23 18:12 Multivitamins (Multivitamin Tab) 1 tab PO QAM JOSE LUIS Stop: 09/17/23 08:59 Last Admin: 08/20/23 08:10 Dose: 1 tab Naloxone HCl (Naloxone Hcl 0.4 Mg/1 Ml Vial/Carp) 0.1 mg IV Q5M PRN PRN Reason: Oversedation/Resp Depression Stop: 09/16/23 18:12 Ondansetron HCl (Ondansetron Inj 2 Mg/Ml 2 Ml Vial) 4 mg IV Q6H PRN PRN Reason: Nausea And Vomiting Stop: 09/16/23 18:12 Sennosides (Senna 8.6 Mg Tab) 17.2 mg PO HS JOSE LUIS Stop: 09/16/23 20:59 Last Admin: 08/19/23 20:13 Dose: 17.2 mg Spironolactone (Spironolactone 25 Mg Tab) 25 mg PO HS PRN PRN Reason: Hypertension Stop: 09/16/23 18:12 Sumatriptan Succinate (Sumatriptan Succinate 100 Mg Tab) 100 mg PO ONCE PRN PRN Reason: migraines Stop: 09/16/23 18:12
[2023-08-20] MEDS ORDERED: DAPTOmycin 500 MG in SYRINGE 0 ML IV SCH (18:00)
--- NOTE | 2023-08-20 18:49 | Hospitalist Progress Note ---
Date of Service August 20, 2023 Assessment & Plan (1) Prosthetic shoulder infection: Plan: s/p Open Irrigation and Debridement of the left shoulder with removal of the glenoid and humeral implants, bone grafting of the central defect in the glenoid, and implantation of a left shoulder hemiarthroplasty- EBL 100cc WBC wnl, afebrile Cultures from joint with Staph species Received one dose IV Vanco 08/18 and then on ceftriaxone only Appreciate ID consult--> add Dapto 8mg/kg IV daily and await final ID/sensitivities Post op care as per Ortho Increase hydrocodone to 2 tabs po q4h prn pain Follow CBC, BMP in AM (2) Anemia: Plan: Hgb dropped from pre-op 10.6--> 7.1 and stable today at 7.3. Prior to being on Eliquis, hgb was 12 but also had shoulder surgery around that same time acute blood loss anemia as well as some dilution from IVF w/ surgery in setting of NSAID/anticoagulation use and previous anemia from last surgery Of note, patient had been taking NSAIDs w/ her eliquis Hemodynamically stable -Follow BCC and transfuse if Hgb<7 -She has a h/o severe constipation with po iron replacement in the past--> give IV Venofer while here -follow CBC in AM and as outpt (3) History of pulmonary embolus (PE): Plan: Post-op b/l knee replacement (02/2023) eliquis resumed AM 08/18 (held x 3 days prior to surgery) (4) Hypertension: Plan: BPs mildly elevated Continues spironolactone 25mg daily as needed Monitor (5) Hypothyroidism: Plan: TSH wnl on recent check - continue synthroid (6) Prediabetes: Plan: A1c 5.8 most recently, not on any home medications Plan DVT proph-Eliquis Dispo-continued stay, possible dc tomorrow with PICC line and home IV abx Admission and Anticipated Discharge Date Admission Date: August 18, 2023 Subjective Having pain in left shoulder. Did move bowels today. No CP. Physical Exam Constitutional: WD/WN, vitals as above Respiratory: normal respiratory effort, lungs clear to auscultation Cardiovascular: RRR, no murmur, no edema Musculoskeletal: Extremities: + extremities abnormal to inspection (LUE in shoulder sling) Psychiatric: A+Ox3, euthymic affect Results & Data Results & Data Vital Signs (Past 12 Hours) Vital Signs Temp Pulse Resp BP Pulse Ox O2 Del Method 08/20/23 13:53 37.0 C 62 15 155/85 H 95 Room Air 08/20/23 07:32 37.2 C 60 16 171/79 H 97 Room Air Laboratory Results CBC< BMP reviewed PG Care Time/CCT Total # of Minutes Spent Total Time Spent with Patient: Total time spent is greater than 50% in coordination of care (as documented) at patient's floor/unit and/or counseling patient: Coding Level of Care Code 21955 SUB INP/OBS CARE 2/35MIN Diagnoses Prosthetic shoulder infection T84.59XA; Z96.619 Anemia D64.9 History of pulmonary embolus (PE) Z86.711 Hypertension I10 Hypothyroidism E03.9 Prediabetes R73.03
[2023-08-20] MEDS ORDERED: ACETAMINOPHEN 325 MG TAB PO PRN (19:02)
[2023-08-20] MEDS: SENNA 8.6 MG TAB PO SCH (21:17)
[2023-08-21] MEDS: HYDROCODONE/ACETAMOPHEN 5/325MG TAB PO PRN ×2 (00:42→14:19)
[2023-08-21] MEDS: LEVOTHYROXINE SODIUM 100 MCG TABLET PO SCH (05:57)
[2023-08-21] MEDS: HYDROmorphone INJ 0.5 MG/0.5 ML SYR IV PRN (05:57)
--- NOTE | 2023-08-21 06:06 | Orthopedic Progress Note ---
Date of Service August 21, 2023 Assessment & Plan (1) Prosthetic shoulder infection: Overall she is doing fairly well. She is having some soreness in her shoulder and we will send her home on oral Dilaudid. We had a consultation yesterday from infectious disease and her antibiotics were changed to daptomycin. We are still awaiting sensitivities. A PICC line was ordered to be placed today. If sensitivities returned today and infectious disease gives recommendations for home antibiotics, then she can be discharged to home later today. Full discharge instructions have been placed. Gavin Porter was seen and examined at bedside this morning. Unfortunately she still in a lot of soreness in the shoulder. The Dilaudid seems to be helping. She is wearing her sling as instructed. Infectious disease consulted with the medicine team yesterday. She has no new complaints.. Review of Systems All systems reviewed & are unremarkable except as noted in HPI & below. Physical Exam On physical examination of the left shoulder, the dressing is clean and dry. She is wearing her sling as instructed. She has active motion of her hand and her wrist.. Results & Data Results & Data Laboratory Results . Diagnostic Findings . PG Care Time/CCT Total # of Minutes Spent Total Time Spent with Patient: Total time spent is greater than 50% in coordination of care (as documented) at patient's floor/unit and/or counseling patient: Coding Level of Care Code 27657 Post Operative Follow-Up Diagnoses Prosthetic shoulder infection T84.59XA; Z96.619
[2023-08-21 06:33] LABS: Basophils # (auto) 0.05 K/uL (0.00-0.20); Basophils % (auto) 0.6 %; Eosinophils # (auto) 0.38 K/uL (0.00-0.50); Eosinophils % (auto) 4.6 %; Hematocrit (blood only) 25.2 % (37.0-47.0); Immature Granulocytes # (auto) 0.03 K/uL (0.01-0.20); Immature Granulocytes % (auto) 0.4 %; Lymphocytes # (auto) 2.21 K/uL (1.20-3.40); Lymphocytes % (auto) 26.6 %; Mean Corpuscular Hemoglobin 23.9 pg (25.0-34.0); Mean Corpuscular Hgb Conc 31.7 g/dL (32.0-36.0); Mean Corpuscular Volume 75.2 fL (80.0-100.0); Mean Platelet Volume 9.3 fL (9.4-12.4); Monocytes # (auto) 0.69 K/uL (0.11-0.59); Monocytes % (auto) 8.3 %; Neutrophils # (auto) 4.94 K/uL (1.40-6.50); Neutrophils % (auto) 59.5 %; Platelet Count 454 K/uL (130-400); RDW Coefficient of Variation 18.3 % (11.5-14.5); RDW Standard Deviation 50.3 fL (36.4-46.3); Red Blood Count 3.35 M/uL (4.20-5.40)
[2023-08-21 06:58] LABS: BUN Creatinine Ratio 22.5 (10-20); Calcium 8.7 mg/dl (8.6-10.3); Creatinine Clr Calc Pharmacy 58.9 ml/min; Est GFR (African American) 86.6 ml/min; Est GFR (Non-African American) 74.7 ml/min; Potassium 3.9 mmol/L (3.5-5.1)
[2023-08-21] MEDS: DOCUSATE SODIUM 100 MG CAP PO SCH ×2 (08:26→19:56)
[2023-08-21] MEDS: GABAPENTIN 300 MG CAP PO SCH ×3 (08:26→19:57)
[2023-08-21] MEDS: APIXABAN 5 MG TABLET PO SCH (08:26)
[2023-08-21] MEDS: IRON SUCROSE 300 MG in SODIUM CHLORIDE 0.9% 250 ML IV SCH (08:26)
[2023-08-21] MEDS: buPROPion SR 150 MG TABCR PO SCH ×2 (08:26→19:57)
[2023-08-21] MEDS: MULTIVITAMIN TAB PO SCH (08:26)
--- NOTE | 2023-08-21 10:54 | Infectious Disease Progress Nt ---
Date of Service August 21, 2023 24 hours OR cultures MSSA Assessment & Plan (1) Prosthetic shoulder infection: Plan #Infected Left shoulder PJI #S/P I+D of the left shoulder with removal of the glenoid and humeral implants on 08/17, OR Culture MSSA 72yo F with h/o HTN, HLD, PAC/PVCs, anxiety/depression, migraine, b/l TKA 02/2023, DVT and PE on eliquis who underwent reverse total shoulder arthroplasty on 06/25/[address] Murray admitted with drainage. Post arthroplasty, patient noticed increased drainage and took oral antibiotics doxycycline and Bactrim. However pain and decreased function continued and she was admitted on under Dr. Addison care. On 08/17 she underwent open I+D of the left shoulder with removal of the glenoid and humeral implants, bone grafting of the central defect in the glenoid, and implantation of a left shoulder hemiarthroplasty. OR cultures are growing VITO. WBC normal 08/18 Blood cultures are no growth. WBC normal. Cr normal. Post op Xray showed Left shoulder arthroplasty with expected postoperative changes. Patient currently on Ceftriaxone, changed to Daptomycin on 08/21/[address] Addison OR note and metal shoulder hemiarthroplasty was retained. In this case we typically add oral Rifampin. However, she is on Eliquis for her DVTs/PE history. If we can find a suitable alternative that doesnt interact with Rifampin then would start Rifampin with therapy. Otherwise will plan for 6 weeks IV antibiotics, followed by oral suppressive therapy x 1 year. Rifampin treatment if pursued would be throughout her IV therapy (6 weeks) + 3 months RECOMMEND: -Since it appear patient would benefit from once a day abx can either given Continuous infusion Nafcillin 12G/24 hours or daily IV Daptomycin -PICC line, anticipate 6 weeks of therapy through 09/28/23: Weekly CBC with diff, CMP, ESR, CRp -From 09/28-12/28/23 continue a PO anti-staphylococcal agent (CEFADROXIL 500mg po BID) PLUS rifampin 300mg BID for three months end date 12/28/23 -Then continue with Cefadroxil for 1 year after this at very least -Addition of Rifampin 300mg po BID as above through 12/28/23 if she is agreeable to changing her anticoagulation therapy -She will need her LFTs monitored once a month while on Rifampin and ensure no drug interactions Kusum Garcia MD Infectious Diseases Admission and Anticipated Discharge Date Admission Date: August 18, 2023 Subjective Subsequent visit was provided via telemedicine using two-way real-time interactive telecommunication between the patient and the telemedicine provider. For the duration of the visit, the provider was performing the assessment from a different facility than the patient. This includesuse of bluetooth stethoscope forauscultationperformed by the telepresenter that the telemedicine provider can hear if described in the physical exam. Qa Reviewer contact information: Please call [facility] [phone]. (Phone Number For Physician Use Only) After establishing a telemedicine visit, patient was: Patient was verified with two unique identifiers, Patient/authorized rep acknowledged consent and understanding and Gave permission to continue telehealth session Time Spent with Patient: Subsequent => 35 min Results & Data Vital Signs (Past 12 Hours) Vital Signs Temp Pulse Pulse Resp BP Pulse Ox O2 Del Method 08/21/23 07:47 36.9 C 58 L 16 172/74 H 98 Room Air 08/21/23 05:00 36.7 C 61 18 144/72 H 99 Room Air Laboratory Results Short CBC 08/20/23 08/21/23 Range/Units 10:47 06:11 WBC 9.02 8.30 (4.8-10.8) K/ul Hgb 7.3 L 8.0 L (12.0-16.0) g/dl Hct 23.5 L 25.2 L (37.0-47.0) % Plt Count 422 H 454 H (130-400) K/uL BMP 08/20/23 08/21/23 10:47 06:11 Sodium 136 135 L Potassium 3.8 3.9 Chloride 105 102 Carbon Dioxide 30 30 BUN 17 18 Creatinine 0.80 0.80 Glucose 105 H 101 H Calcium 8.7 8.7 Cardiac Enzymes 08/21/23 Range/Units 06:11 Total Creatine Kinase 21 L (26-192) U/L Microbiology 08/17/23 Unknown Shoulder,Left Gram Stain - Final 08/17/23 Unknown Shoulder,Left Aerobic and Anaerobic Culture - Preliminary Staphylococcus aureus 08/18/23 09:40 Blood Aerobic Blood Culture - Preliminary No growth in Aerobic bottle after 48 hours. 08/18/23 09:40 Blood Anaerobic Blood Culture - Preliminary No growth in Anaerobic bottle after 48 hours. 08/18/23 09:34 Blood Aerobic Blood Culture - Preliminary No growth in Aerobic bottle after 48 hours. 08/18/23 09:34 Blood Anaerobic Blood Culture - Preliminary No growth in Anaerobic bottle after 48 hours. Medications Administered Current Inpatient Medications Acetaminophen (Acetaminophen 325 Mg Tab) 650 mg PO Q8 PRN PRN Reason: mild pain, headache, or fever Stop: 09/16/23 21:59 Hydrocodone Bitart/Acetaminophen (Hydrocodone/Acetamophen 5/325mg Tab) 2 tab PO Q4H PRN PRN Reason: moderate to severe pain Stop: 09/02/23 16:27 Last Admin: 08/21/23 00:42 Dose: 2 tab Apixaban (Apixaban 5 Mg Tablet) 5 mg PO Q12H [facility] Stop: 09/17/23 07:59 Last Admin: 08/21/23 08:26 Dose: 5 mg Bisacodyl (Bisacodyl 10 Mg Supp) 10 mg MS DAILY PRN PRN Reason: Constipation Stop: 09/16/23 18:12 Bupropion HCl (Bupropion Sr 150 Mg Tabcr) 150 mg PO BID [facility] Stop: 09/16/23 20:59 Last Admin: 08/21/23 08:26 Dose: 150 mg Docusate Sodium (Docusate Sodium 100 Mg Cap) 100 mg PO BID [facility] Stop: 09/16/23 20:59 Last Admin: 08/21/23 08:26 Dose: 100 mg Fluticasone Propionate (Fluticasone Propionate Na Spr 16 Gm Btl) 2 sprays NA DAILY PRN PRN Reason: Nasal Congestion Stop: 09/16/23 18:12 Gabapentin (Gabapentin 300 Mg Cap) 900 mg PO TID [facility] Stop: 09/16/23 20:59 Last Admin: 08/21/23 08:26 Dose: 900 mg Hydromorphone HCl (Hydromorphone Inj 0.5 Mg/0.5 Ml Syr) 0.5 mg IV Q2H PRN PRN Reason: Pain or Pre PT Stop: 08/31/23 18:12 Last Admin: 08/21/23 05:57 Dose: 0.5 mg Daptomycin 500 mg/ Syringe 10 mls @ 5 mls/min IV DAILY@1800 [facility]; Protocol Stop: 10/01/23 17:59 Last Admin: 08/20/23 18:19 Dose: 5 mls/min Iron Sucrose 300 mg/ Sodium (Chloride) 265 mls @ 176.667 mls/hr IV DAILY [facility] Stop: 08/23/23 10:29 Last Infusion: 08/21/23 10:06 Dose: Infused Levothyroxine Sodium (Levothyroxine Sodium 88 Mcg Tablet) 88 mcg PO SuSa@0630 [facility] Stop: 09/17/23 06:29 Last Admin: 08/19/23 06:06 Dose: 88 mcg Levothyroxine Sodium (Levothyroxine Sodium 100 Mcg Tablet) 100 mcg PO MoTuWeThFr@0630 [facility] Stop: 09/19/23 06:29 Last Admin: 08/21/23 05:57 Dose: 100 mcg Magnesium Hydroxide (Magnesium Hydroxide Susp 30 Ml Udc) 30 ml PO Q6H PRN PRN Reason: Constipation Stop: 09/16/23 18:12 Last Admin: 08/20/23 13:16 Dose: 30 ml Metoclopramide HCl (Metoclopramide Hcl Inj 5 Mg/Ml 2 Ml Vial) 10 mg IV Q6H PRN PRN Reason: Nausea And Vomiting Stop: 09/16/23 18:12 Multivitamins (Multivitamin Tab) 1 tab PO QAM [facility] Stop: 09/17/23 08:59 Last Admin: 08/21/23 08:26 Dose: 1 tab Naloxone HCl (Naloxone Hcl 0.4 Mg/1 Ml Vial/Carp) 0.1 mg IV Q5M PRN PRN Reason: Oversedation/Resp Depression Stop: 09/16/23 18:12 Ondansetron HCl (Ondansetron Inj 2 Mg/Ml 2 Ml Vial) 4 mg IV Q6H PRN PRN Reason: Nausea And Vomiting Stop: 09/16/23 18:12 Sennosides (Senna 8.6 Mg Tab) 17.2 mg PO HS [facility] Stop: 09/16/23 20:59 Last Admin: 08/20/23 21:17 Dose: 17.2 mg Sumatriptan Succinate (Sumatriptan Succinate 100 Mg Tab) 100 mg PO ONCE PRN PRN Reason: migraines Stop: 09/16/23 18:12
[2023-08-21] MEDS: NAFCILLIN SODIUM 2,000 MG in DEXTROSE 5% MINI-B 100 ML IV SCH ×3 (12:45→19:52)
[2023-08-21] MEDS ORDERED: WARFARIN SOD 5 MG TAB PO SCH (17:00)
[2023-08-21] MEDS ORDERED: CYANOCOBALAMIN 1000 MCG/ML VIAL IM ONE (17:03)
--- NOTE | 2023-08-21 17:04 | Hospitalist Progress Note ---
Date of Service August 21, 2023 Assessment & Plan (1) Prosthetic shoulder infection: Plan: s/p Open Irrigation and Debridement of the left shoulder with removal of the glenoid and humeral implants, bone grafting of the central defect in the glenoid, and implantation of a left shoulder hemiarthroplasty- EBL 100cc WBC wnl, afebrile Cultures from joint with MSSA Appreciate ID consult--> initially added Dapto 8mg/kg IV daily but now switch to nafcillin 12 grams continuously x 6 weeks + rifampin 300mg po bid for 6 weeks, then go to cefadroxil bid x 1 year + rifampin 300mg bid x 3 month Post op care as per Ortho dc hydrocodone and trial po dilaudid Follow CBC, CMP, CRP while on abx q1 week Has PICC line in place as of 08/21 (2) Anemia: Plan: Hgb dropped from pre-op 10.6--> 7.1 and now improved to 8.0-some hemodilutional as well as acute blood loss anemia from surgery in setting of chronic iron deficiency anemia. Prior to being on Eliquis, hgb was 12 Of note, patient had been taking NSAIDs w/ her eliquis Hemodynamically stable -Follow CBC and transfuse if Hgb<7 -She has a h/o severe constipation with po iron replacement in the past--> give IV Venofer while here -follow CBC as outpt -needs ongoing outpt follow up for this (3) History of pulmonary embolus (PE): Plan: Post-op b/l knee replacement (02/2023) eliquis resumed AM 08/18 and now will convert o Coumadin as ELiquis interacts with Rifampin dc Eliquis start bridging Lovenox 1mg/kg bid start Coumadin 5mg daily and follow INR daily while here and then once weekly after that Needs PCP or anticoag clinic to monitor INR (4) Hypertension: Plan: BPs mildly elevated 2/2 pain Continues spironolactone 25mg daily as needed Monitor (5) Hypothyroidism: Plan: TSH wnl on recent check - continue synthroid (6) Prediabetes: Plan: A1c 5.8 most recently, not on any home medications Plan DVT proph-Eliquis and now Lovenox/Coumadin Dispo-continued stay, possible dc tomorrow with PICC line and home IV abx once all arrangements final Admission and Anticipated Discharge Date Admission Date: August 18, 2023 Subjective Still having pain in left shoulder. Hydrocodone does not help. No SOB or CP. She is agreeable to switching ELiquis to coumadin. Physical Exam Constitutional: WD/WN, vitals as above Respiratory: normal respiratory effort, lungs clear to auscultation Cardiovascular: RRR, no murmur, no edema Musculoskeletal: Extremities: + extremities abnormal to inspection (LUE in shoulder sling) Psychiatric: A+Ox3, euthymic affect Results & Data Results & Data Vital Signs (Past 12 Hours) Vital Signs Temp Pulse Resp BP BP Pulse Ox O2 Del Method 08/21/23 15:49 37.2 C 71 16 178/74 H 97 Room Air 08/21/23 07:47 36.9 C 58 L 16 172/74 H 98 Room Air Laboratory Results CBC, BMP reviewed PG Care Time/CCT Total # of Minutes Spent Total Time Spent with Patient: Total time spent is greater than 50% in coordination of care (as documented) at patient's floor/unit and/or counseling patient: Coding Level of Care Code 30558 SUB INP/OBS CARE 3/50MIN Diagnoses Prosthetic shoulder infection T84.59XA; Z96.619 Anemia D64.9 History of pulmonary embolus (PE) Z86.711 Hypertension I10 Hypothyroidism E03.9 Prediabetes R73.03
[2023-08-21] MEDS: SENNA 8.6 MG TAB PO SCH (19:57)
[2023-08-21] MEDS: rifAMPin 300 MG CAPSULE PO SCH (19:57)
[2023-08-21] MEDS: ENOXAPARIN INJ 60 MG/0.6 ML SYR SQ SCH (19:57)
[2023-08-21] MEDS: HYDROmorphone HCL 2 MG TAB PO PRN (20:02)
[2023-08-22] MEDS: NAFCILLIN SODIUM 2,000 MG in DEXTROSE 5% MINI-B 100 ML IV SCH ×4 (00:15→12:39)
[2023-08-22] MEDS: HYDROmorphone HCL 2 MG TAB PO PRN ×2 (00:17→05:07)
[2023-08-22] MEDS: LEVOTHYROXINE SODIUM 100 MCG TABLET PO SCH (05:07)
--- NOTE | 2023-08-22 05:57 | Orthopedic Progress Note ---
Date of Service August 22, 2023 Assessment & Plan (1) Prosthetic shoulder infection: Overall she is doing fairly well. The pain in her shoulder is improving a little bit. The PICC line was placed yesterday. She should be stable for discharge later today on IV nafcillin for 6 weeks. Her Eliquis was discontinued and she was started on Coumadin. She was also started on rifampin. Full infectious disease recommendations were reviewed. I will follow her closely but she should have some periodic appointments with infectious disease as well. She is orthopedically stable for discharge when her home IV antibiotics are set up. She will follow-up with orthopedics in 2 weeks. Gavin Cade was seen and examined at bedside this morning. Overall she is doing okay. She still some soreness in the shoulder but is better on the oral Dilaudid. She was seen by infectious disease yesterday and final antibiotic recommendations were given. A PICC line was placed.. Review of Systems All systems reviewed & are unremarkable except as noted in HPI & below. Physical Exam On physical examination left shoulder, the dressing is clean and dry. She is wearing her sling as instructed. She has active motion of her hand and wrist.. Results & Data Results & Data Laboratory Results . Diagnostic Findings . PG Care Time/CCT Total # of Minutes Spent Total Time Spent with Patient: Total time spent is greater than 50% in coordination of care (as documented) at patient's floor/unit and/or counseling patient: Coding Level of Care Code 82660 Post Operative Follow-Up Diagnoses Prosthetic shoulder infection T84.59XA; Z96.619
[2023-08-22 06:45] LABS: Basophils # (auto) 0.05 K/uL (0.00-0.20); Basophils % (auto) 0.8 %; Eosinophils # (auto) 0.29 K/uL (0.00-0.50); Eosinophils % (auto) 4.8 %; Hemoglobin 7.5 g/dl (12.0-16.0); Immature Granulocytes # (auto) 0.04 K/uL (0.01-0.20); Immature Granulocytes % (auto) 0.7 %; Lymphocytes # (auto) 1.54 K/uL (1.20-3.40); Lymphocytes % (auto) 25.8 %; Mean Corpuscular Hemoglobin 23.6 pg (25.0-34.0); Mean Corpuscular Hgb Conc 31.3 g/dL (32.0-36.0); Mean Corpuscular Volume 75.5 fL (80.0-100.0); Mean Platelet Volume 9.5 fL (9.4-12.4); Monocytes % (auto) 8.4 %; Neutrophils # (auto) 3.56 K/uL (1.40-6.50); Neutrophils % (auto) 59.5 %; Platelet Count 434 K/uL (130-400); RDW Coefficient of Variation 18.1 % (11.5-14.5); RDW Standard Deviation 50.1 fL (36.4-46.3); Red Blood Count 3.18 M/uL (4.20-5.40); White Blood Count 5.98 K/ul (4.8-10.8)
[2023-08-22 06:55] LABS: BUN Creatinine Ratio 17.3 (10-20); Calcium 8.2 mg/dl (8.6-10.3); Creatinine Clr Calc Pharmacy 58.2 ml/min; Est GFR (African American) 85.3 ml/min; Est GFR (Non-African American) 73.6 ml/min; Potassium 3.7 mmol/L (3.5-5.1)
[2023-08-22 07:07] LABS: INR 1.1 (0.9-1.1); Prothrombin Time 11.6 Seconds (9.0-12.0)
[2023-08-22 07:21] LABS: Microcytosis Present
[2023-08-22] MEDS: buPROPion SR 150 MG TABCR PO SCH (08:43)
[2023-08-22] MEDS: rifAMPin 300 MG CAPSULE PO SCH (08:43)
[2023-08-22] MEDS: IRON SUCROSE 300 MG in SODIUM CHLORIDE 0.9% 250 ML IV SCH (08:43)
[2023-08-22] MEDS: GABAPENTIN 300 MG CAP PO SCH ×2 (08:43→13:20)
[2023-08-22] MEDS: ENOXAPARIN INJ 60 MG/0.6 ML SYR SQ SCH (08:44)
[2023-08-22] MEDS: DOCUSATE SODIUM 100 MG CAP PO SCH (08:44)
[2023-08-22] MEDS: MULTIVITAMIN TAB PO SCH (08:45)
--- NOTE | 2023-08-22 13:29 | Hospitalist Progress Note ---
Date of Service August 22, 2023 Assessment & Plan (1) Prosthetic shoulder infection: Plan: s/p Open Irrigation and Debridement of the left shoulder with removal of the glenoid and humeral implants, bone grafting of the central defect in the glenoid, and implantation of a left shoulder hemiarthroplasty- EBL 100cc WBC wnl, afebrile Cultures from joint with MSSA Blood cultures no growth to date Appreciate ID consult--> initially added Dapto 8mg/kg IV daily but then switched to nafcillin 12 grams continuously x 6 weeks + rifampin 300mg po bid for 6 weeks, then go to cefadroxil bid x 1 year + rifampin 300mg bid x 3 more months after initial 6 weeks. Post op care as per Ortho po dilaudid for pain, avoid NSAIDs Follow CBC, CMP, CRP, PT/INR while on abx q1 week Has PICC line in place as of 08/21 (2) Anemia: Plan: Hgb dropped from pre-op 10.6--> 7.1 and now improved to 7.5-some hemodilutional as well as acute blood loss anemia from surgery in setting of chronic iron deficiency anemia. Prior to being on Eliquis, hgb was 12 Of note, patient had been taking NSAIDs w/ her eliquis Hemodynamically stable -Follow CBC once weekly and transfuse if Hgb<7 -She has a h/o severe constipation with po iron replacement in the past--> gave IV Venofer 300mg x 2 doses while here -follow CBC as outpt -needs ongoing outpt follow up for this -needs GI workup as well if not improving after surgery (3) History of pulmonary embolus (PE): Plan: Post-op b/l knee replacement (02/2023) eliquis resumed AM 08/18 and then converted to Coumadin as ELiquis interacts with Rifampin dc Eliquis started bridging Lovenox 1mg/kg bid started Coumadin 5mg daily on 08/21 and follow INR as outpt starting 08/24 and then once weekly--> INR 1.1 on day of discharge Needs PCP to monitor INR (4) Hypertension: Plan: BPs mildly elevated 2/2 pain Continues spironolactone 25mg daily as needed Monitor (5) Hypothyroidism: Plan: TSH wnl on recent check - continue synthroid (6) Prediabetes: Plan: A1c 5.8 most recently, not on any home medications Plan DVT proph-Eliquis and now Lovenox/Coumadin Dispo-dc to home with home health Admission and Anticipated Discharge Date Admission Date: August 18, 2023 Subjective Pt has some pain in left shoulder but ok. No CP, SOB, nausea. Feeling emotional. Physical Exam Constitutional: WD/WN, vitals as above Respiratory: normal respiratory effort, lungs clear to auscultation Cardiovascular: RRR, no murmur, no edema Musculoskeletal: Extremities: + extremities abnormal to inspection (LUE in shoulder sling) Psychiatric: A+Ox3, euthymic affect Results & Data Results & Data Vital Signs (Past 12 Hours) Vital Signs Temp Pulse Resp BP Pulse Ox O2 Del Method 08/22/23 07:33 36.9 C 68 16 152/71 H 97 Room Air Laboratory Results CBC, BMP, CK reviewed PG Care Time/CCT Total # of Minutes Spent Total Time Spent with Patient: Total time spent is greater than 50% in coordination of care (as documented) at patient's floor/unit and/or counseling patient: Coding Level of Care Code 98208 SUB INP/OBS CARE 2/35MIN Diagnoses Prosthetic shoulder infection T84.59XA; Z96.619 Anemia D64.9 History of pulmonary embolus (PE) Z86.711 Hypertension I10 Hypothyroidism E03.9 Prediabetes R73.03
--- NOTE | 2023-09-05 16:39 | Discharge Summary ---
Date of Service September 05, 2023 Principal Diagnosis Same as "Discharge Diagnosis" noted below under Discharge Instructions. Discharge Exam On physical examination left shoulder, the dressing is clean and dry. She is wearing her sling as instructed. She has active motion of her hand and wrist.. Discharge Data Consultations 08/17/23 18:13 Consult Hospitalist Routine Consult Infectious Diseases Routine Procedures Performed Operation Date: 08/17/23 13:00 Actual Procedures s Open Irrigation and Debridement of the left shoulder - Michael Murray DO p implantation of a left shoulder hemiarthroplasty, bone grafting of the central defect in the glenoid - Michael Murray DO s removal of the glenoid and humeral implants, - Michael Murray DO Ordered Studies 08/17/23 05:00 US - OR guided needle placemen Routine Hospital Course (1) Prosthetic shoulder infection: On August 17, 2023 Charlotte arrived at [facility] and underwent an irrigation and debridement with competent exchange of her left shoulder. Postoperatively she was started on ceftriaxone and the hospitalist was consulted. She was transferred to the general orthopedic floors. On postop day #1 she was doing fairly well. She was having some soreness in the shoulder which is to be expected. She continued the ceftriaxone. On postop day #2 she was doing well. She was on Eliquis for DVT prophylaxis. The initial cultures grew out a staph species. On postop day #3 she was seen by infectious disease. It was recommended that she stop the Eliquis and start on Coumadin. That way they could start her on rifampin. The ceftriaxone was switched to daptomycin. On postop day #4 she was doing well. Blood cultures were negative and a PICC line was placed. Final sensitivities came back. On postop day #5 she was then discharged home on IV daptomycin and oral rifampin. She will follow-up with orthopedics in 2 weeks. PG Care Time/CCT Total # of Minutes Spent Total Time Spent with Patient: Total time spent is greater than 50% in coordination of care (as documented) at patient's floor/unit and/or counseling patient: Discharge Plan Discharge Items Patient Disposition: Home - Home Health Services Reason For Visit: Infection Left Total Shoulder Arthroplasty Discharge Diagnosis: Status post I&D left shoulder Activity: Resume your previous activity Non-emergency contact: Primary Care Provider and Surgeon Call non-emergency contact if: your wound has increased redness and your wound has increased drainage Follow-up/Referrals: Teena Cadena DO [Primary Care Provider] - 08/28/23 10:20 am (Follow up within 1-2 weeks.) Diet: Regular Addtl Attending Provider Instructions: Activity and Therapy Recommendations: * Stay in the arm sling for 6 weeks. You may remove the sling to change closed in the shower. * We will hold off on physical therapy for 6 weeks. We want to give the bone graft and the shoulder a chance to heal. Medications: * Narcotic You will likely be sent home from the hospital with a prescription for the narcotic pain medication that worked best throughout your stay. * Take the antibiotics as prescribed by infectious disease. * Other medications may be prescribed for specific circumstances. If you have any questions, please call the office at . * Resume previous home medications unless otherwise instructed Dressing Care: Leave the Silverlon dressing in place for 7 days. After 7 days you may remove the dressing. If the incision is not draining then you may leave the cate open to air. If there is a little bit of drainage or if the cate are getting stuck on your clothing then cover the incision with a dry dressing. The cate will be removed at your 2 week follow-up appointment. Showering: You may shower with the Silverlon dressing in place. Do not let the shower spray hit the dressing directly. Pat the Silverlon dressing dry. If the dressing becomes wet underneath, then simply remove the dressing. Keep the incision dry until you are 7 days out from the day of surgery. After 7 days you may remove the Silverlon dressing and shower with the cate exposed. Let soapy water run over the cate and pat them dry. Do not scrub or soak the incision. Things To Watch For: * Drainage from the incision site that occurs more than one week after your surgery. * Increased redness at the incision site. * Fever above 102 degrees Fahrenheit. * Unusual chest pain or shortness of breath. * Call [facility] at with any of the above problems Follow-Up Visit: Follow-up with Dr. Murray 2-3 weeks after your day of surgery. He will remove your cate and answer any questions. If you have any additional questions or concerns, Dr Murray is usually in the office at the same time and will be available Please call the office to set up an appointment for a time that works for you. More detailed instructions as well as Frequently Asked Questions were provided in a folder by our office when you signed-up for surgery. Please review these instructions when you get home. 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 You will need to use the Lovenox injections twice a day until your Coumadin level is between 2.0-3.0. Dr. Cadena will let you know when it is safe to stop the Lovenox. Please take the Coumadin daily with dinner. Dr. Cadena may need to adjust the dose based on your blood test called PT/INR. The visiting nurse will check your blood work to be drawn from your PICC line once a week starting this Sunday08/24/23. You will be on the IV antibiotics for 6 weeks. Pending Studies at Discharge: No Stand-Alone Forms: My [facility] [employer], Smoking Cessation Medications and DC Order Prescriptions: New rifampin 300 mg Capsule 300 mg PO BID Qty: 60 0RF warfarin 5 mg Tablet 5 mg PO DAILY@1600 Qty: 30 0RF Protocol: Dose Management Condition: Sunday Dose/Route: 5 mg Instruction: 1 x 5 mg tablet Condition: Sunday Dose/Route: 7.5 mg Instruction: 1.5 x 5 mg tablets Condition: Sunday Dose/Route: 7.5 mg Instruction: 1.5 x 5 mg tablets Condition: Sunday Dose/Route: 5 mg Instruction: 1 x 5 mg tablet Condition: Dose/Route: 7.5 mg Instruction: 1.5 x 5 mg tablets Condition: Sunday Dose/Route: 7.5 mg Instruction: 1.5 x 5 mg tablets Condition: Sunday Dose/Route: 5 mg Instruction: 1 x 5 mg tablet Protocol Text: Adjustment Start Date: Sunday09/03/23 INR Value: 1.72 INR Date: 09/03/23 Recheck Date: 09/10/23 Continued sumatriptan succinate 100 mg tablet 100 mg PO ONCE PRN (Reason: migraines) Qty: 20 0RF Rx Instructions: may repeat >q2 hrs if symptoms persist; do not exceed 2 doses per 24 hrs (200 mg) fluticasone propionate 50 mcg/actuation spray,suspension 2 spray intranasal DAILY PRN (Reason: Nasal Congestion) Rx Instructions: administer into each nostril levothyroxine 88 mcg tablet 88 mcg PO .COMPLEX Qty: 90 1RF Rx Instructions: 88 mcg PO Sunday and Sunday; cyanocobalamin (vitamin B-12) 1,000 mcg/mL solution 1,000 mcg IM .COMPLEX Qty: 300 0RF Rx Instructions: 1,000 mcg intramuscularly weekly x 4 weeks, then monthly x 6 months; levothyroxine 100 mcg tablet 100 mcg PO .COMPLEX Qty: 90 3RF Rx Instructions: 100 mcg PO Sunday- Sunday; gabapentin 300 mg capsule 900 mg PO TID Discontinued oxycodone-acetaminophen [Percocet] 5-325 mg tablet 1 tab PO Q6H PRN (Reason: pain) Qty: 30 0RF Eliquis 5 mg tablet 5 mg PO BID Qty: 60 1RF sulfamethoxazole-trimethoprim [Bactrim DS] 800-160 mg tablet 1 tab PO Q12H Qty: 10 0RF oxycodone 5 mg tablet 5 mg PO Q6 PRN (Reason: pain) Qty: 30 0RF sulfamethoxazole-trimethoprim [Bactrim DS] 800-160 mg tablet 1 tab PO Q12H 7 Days Qty: 14 0RF doxycycline hyclate 100 mg tablet 100 mg PO BID 10 Days Qty: 20 0RF oxycodone-acetaminophen [Percocet] 5-325 mg tablet 1 tab PO Q6H PRN (Reason: pain) Qty: 30 0RF No Action nafcillin in dextrose iso-osm 2 gram/100 mL piggyback 12 g IV .COMPLEX Rx Instructions: 12 grams intravenously continuously; via PICC pantoprazole 40 mg tablet,delayed release (DR/EC) See Rx Instructions .ROUTE .COMPLEX Qty: 90 3RF Dose Instruction: TAKE 1 TABLET DAILY Rx Instructions: TAKE 1 TABLET DAILY enoxaparin 60 mg/0.6 mL syringe 60 mg subcut Q12H Qty: 6 0RF Adult 50 Plus Probiotic 4 billion cell capsule 4,000 mmu cells PO DAILY Rx Instructions: administer with a meal bupropion HCl [Wellbutrin SR] 150 mg tablet sustained-release 12 hr 150 mg PO BID Qty: 180 1RF fluconazole 150 mg tablet 150 mg PO Q3D PRN (Reason: yeast infection) Qty: 2 0RF Discharge Orders: Discharge Order (Routine); Ordered 08/22/23 Ordered By: Michael Murray Admission Data Admit Date/Time: 08/18/23 11:24 Attending Provider: Michael Murray Admit Provider: Michael Murray Primary Care Provider: Teena Cadena Other Providers: Melissa Bob; Carlos Eduardo Maria; Aida Escoto; Osvaldo Zacarias; Amanda Rizvi; Kusum Garcia; Grisel Patiño; Luis Angel Lagunas; Kaitlin Blackburn; Brittany Weeks; Severiano Rg; Desiree Mejia; Kameron Heaton Robert R.; Giovanni Ryan; Wily Romo; Dylon Javier; Chrystal Pablo; Kristy Sewell; Rakan Gunderson; Lana Davenport; Emir Miller; Misty Moreno; Matt Persaud; David Holder; Desiree Yoder; Thi Sinclair; Arnoldo Coffey; Kameron Wagner; Sharad Villar; Malathi Rosario; Kaitlin Stahl; Myles Garcia; Mehreen Gil; Aeljandro Martell; Niall Bustillo; Hoang Meraz; Navid Butt; Yamile Robles; Jeannie Quezada; Yesica Jacobson; Jose E Bedoya; Giovanni Hernandez Other Interventions: Discharge Summary Assessment (RN) Last Done: 08/22/23 12:43
== END 2023-08-22 14:36 | disposition home health service (06) | DRG 483 ==
LOC: ASU 09:21 → 3E 09:21

== ENCOUNTER 2024-10-14 12:52 | Inpatient (IN) ==
[2024-10-14 13:19] LABS: Basophils # (auto) 0.06 K/uL (0.00-0.20); Basophils % (auto) 0.7 %; Eosinophils # (auto) 0.41 K/uL (0.00-0.50); Hematocrit (blood only) 35.5 % (37.0-47.0); Hemoglobin 11.9 g/dl (12.0-16.0); Immature Granulocytes # (auto) 0.04 K/uL (0.01-0.20); Immature Granulocytes % (auto) 0.5 %; Lymphocytes # (auto) 1.47 K/uL (1.20-3.40); Lymphocytes % (auto) 17.9 %; Mean Corpuscular Hemoglobin 30.2 pg (25.0-34.0); Mean Corpuscular Hgb Conc 33.5 g/dL (32.0-36.0); Mean Corpuscular Volume 90.1 fL (80.0-100.0); Mean Platelet Volume 10.6 fL (9.4-12.4); Monocytes # (auto) 0.79 K/uL (0.11-0.59); Monocytes % (auto) 9.6 %; Neutrophils # (auto) 5.45 K/uL (1.40-6.50); Neutrophils % (auto) 66.3 %; Platelet Count 249 K/uL (130-400); RDW Coefficient of Variation 12.8 % (11.5-14.5); RDW Standard Deviation 42.3 fL (36.4-46.3); Red Blood Count 3.94 M/uL (4.20-5.40); White Blood Count 8.22 K/ul (4.8-10.8)
[2024-10-14 13:43] LABS: Albumin Globulin Ratio 1.7 (0.9-2); Albumin Level 4.4 gm/dl (3.4-5.0); BUN Creatinine Ratio 15.2 (10-20); Bilirubin,Total 0.4 mg/dl (0.2-1.0); Calcium 9.1 mg/dl (8.6-10.3); Creatinine Clr Calc Pharmacy 15.1 ml/min; Globulin 2.6 gm/dl (2.5-4.0); Potassium 4.9 mmol/L (3.5-5.1)
[2024-10-14 13:46] LABS: INR 0.9 (0.9-1.1); Partial Thromboplastin Time 28 Seconds (21-31); Prothrombin Time 10.1 Seconds (9.0-12.0)
--- NOTE | 2024-10-14 14:24 | Emergency Department Note ---
Impression & Plan Acute renal insufficiency, Hypertension, Fatigue ED Provider Note NAME: ANURAG BENDER AGE: 73 SEX: F : 1950 ARRIVES VIA: Walk-In INFORMANT: Patient ED PROVIDER(S): Van Smith MD CHIEF COMPLAINT: Worsening renal function, referred. PLAN: Disposition: Admit MEDICAL DECISION MAKING: The patient is a pleasant 73-year-old woman with a past medical history of acid reflux, hypertension, hyperlipidemia, osteoarthritis, hypothyroidism, migraines who presents to the emergency department via walk-in referred by her PCP office for evaluation of worsening renal function which was first noticed in August when she had blood work obtained and this demonstrated creatinine of 1.9 increased from her baseline of 1. She was encouraged to hydrate and plan was to repeat her kidney function subsequently. This was repeated yesterday and showed worsening to 3.4. The patient was contacted to present to the emergency department immediately due to the degree of worsening. Patient denies any acute symptoms but does report malaise/fatigue over the past month. She denies any cough or congestion, chest pain or shortness of breath. She denies any flank or abdominal pain. She denies any blood in her urine or burning with urination. She does note that she had been following with her outpatient providers for elevated blood pressure and had her triamterene/hydrochlorothiazide dose increased several months ago. Of note, the patient did arrive to emergency department during time of high volume, acuity and prolonged emergency department waiting times. Critical pathways initiated from triage. On evaluation the patient is no acute distress, afebrile with blood pressure in 140s/60s and vital signs otherwise stable. She appears clinically dry. Abdomen is benign. WBC and platelets within normal limits. H/H approximate 2 prior range values. Chemistry without metabolic acidosis. Creatinine 3.3 down from 3.4 yesterday. BUN is 50. Electrolytes and LFTs unremarkable. TSH within limits. UA without evidence of infection. CT of the abdomen pelvis without contrast was performed and demonstrates nonobstructing right renal calculus and otherwise no acute abnormalities. Moderate fecal retention is described. The patient was provided with gentle IV fluid hydration. Case was discussed with Dr. Lm Waldrop, admitting resident with Dr. Wagner, [facility] hospitalist who will evaluate the patient for admission. Further management per admitting team. Triage Nursing notes reviewed and agree them. Prior/external medical records reviewed Vital Signs: reviewed Differential diagnosis: Infection, dehydration, metabolic abnormality, hypo/hyperglycemia, electrolyte disturbance, anemia, hypoxia, cardiac sources, intracerebral event, toxicologic, neurologic, as well as other pathologies. ER treatment provided: See below. Diagnostics interpreted by me: Cardiac Monitoring: An order for continuous cardiac monitoring was placed and demonstrated normal sinus rhythm, 62 bpm, no ectopy. Laboratory studies: See below Imaging studies: See below Consultation(s): Dr. Lm Waldrop, admitting resident with Dr. Wagner, [facility] hospitalist HPI: The patient is a pleasant 73-year-old woman with a past medical history of acid reflux, hypertension, hyperlipidemia, osteoarthritis, hypothyroidism, migraines who presents to the emergency department via walk-in referred by her PCP office for evaluation of worsening renal function which was first noticed in August when she had blood work obtained and this demonstrated creatinine of 1.9 increased from her baseline of 1. She was encouraged to hydrate and plan was to repeat her kidney function subsequently. This was repeated yesterday and showed worsening to 3.4. The patient was contacted to present to the emergency department immediately due to the degree of worsening. Patient denies any acute symptoms but does report malaise/fatigue over the past month. She denies any cough or congestion, chest pain or shortness of breath. She denies any flank or abdominal pain. She denies any blood in her urine or burning with urination. She does note that she had been following with her outpatient providers for elevated blood pressure and had her triamterene/hydrochlorothiazide dose increased several months ago. ROS: See above HPI for pertinent positives & negatives. A total of 10 systems reviewed and were otherwise negative. VITALS:See Below PHYSICAL EXAMINATION: GENERAL: Awake, alert, well-appearing, in no distress HENT: Normocephalic, atraumatic. Oropharynx with dry mucous membranes and otherwise unremarkable. EYES: Normal conjunctiva. Sclera non-icteric. NECK: Supple. No nuchal rigidity. FROM. No JVD. RESPIRATORY: Clear to auscultation. CARDIAC: Regular rate, normal rhythm. Extremities warm and well perfused. Pulses equal. ABDOMEN: Soft, non-distended. No tenderness to palpation. No rebound or guarding. No masses. MUSCULOSKELETAL: Chest examination reveals no tenderness. The back is symmetrical on inspection without obvious abnormality. There is no CVA tenderness to palpation. No joint edema. LOWER EXTREMITIES: Calves are equal size bilaterally and non-tender. No edema. No discoloration. NEURO: Normal sensorium. No sensory or motor deficits noted. SKIN: No rash or jaundice noted. Van Smith MD Past Med/Surg History Problem List (Updated 10/15/24 @ 05:11 by Van Smith MD) Fatigue (Acute) Hypertension (Acute) Acute renal insufficiency (Acute) MARISSA (acute kidney injury) Personal history of infected joint Vitamin D deficiency GERD (gastroesophageal reflux disease) Prosthetic shoulder infection Anemia B12 deficiency History of pulmonary embolus (PE) Post-op b/l knee replacement (02/2023) PVC's (premature ventricular contractions) Paroxysmal atrial tachycardia Hypertension Prediabetes Osteoarthritis Hyperlipidemia no current medications Anxiety and depression Hypothyroidism Insomnia Migraine headache Allergic rhinitis Medical History History of removal of joint prosthesis of shoulder due to infection (07/2023) Low back pain Transient elevated blood pressure Hypotension Syncope Anticoagulant long-term use Rotator cuff arthropathy of left shoulder Vasovagal near-syncope Rotator cuff tear Post op infection Hypotension Surgical History S/P shoulder surgery (07/2023) 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) History of colonoscopy S/P tonsillectomy History of open reduction and internal fixation (ORIF) procedure History of carpal tunnel surgery S/P rotator cuff repair Family History Father Hypertension Multiple myeloma Mother Esophageal cancer Other No family history of adverse response to anesthesia Denies family history of Ovarian cancer Prostate cancer Myocardial infarction Breast cancer Colorectal cancer Social History Smoking Status: Never smoker Second Hand Exposure: No; Do You Dip or Chew Tobacco: No; Hx Alcohol Use: No Hx Substance Use: No Preferred Language: Sinhala Communication Ability: Effective Visual Impairment: No Limitations Hearing Ability: Normal Insurance Administrator Required: No Beliefs That Will Affect Care: None marital status: Current Living Situation: Spouse current occupational status: employed current occupation: parttime at [employer] How many Children do You have: 2 How many Children do You have Comment: adopted special needs children Other Information That Helps Us Care for You: No Feels Safe at Home: Yes Safety Concerns: Feels Safe At This Time Childhood Exposure to Second-Hand Smoke: No Diet: regular Diet Comment: Regular caffeine: No during the past year weight has: remained stable Dental Care, Regularly: Yes Physical Activity Frequency: 3-4 Times per Week Physical Activity Frequency Comment: Walking Seatbelt Use: always Sunscreen Use: Yes Assistive Devices: Glasses Allergies Allergies Allergy/AdvReac Type Severity Reaction Status Date / Time Sulfa (Sulfonamide AdvReac Intermediate nausea Verified 10/14/24 16:22 Antibiotics) Home Meds Home Medications Medication Instructions Recorded Confirmed levothyroxine 100 mcg tablet 100 mcg PO UD 10/14/24 10/14/24 levothyroxine 88 mcg tablet 88 mcg PO UD 10/14/24 10/14/24 pantoprazole 40 mg tablet,delayed 40 mg PO DAILYBB 10/14/24 10/14/24 release Previous Rx's Medication Instructions Recorded sumatriptan succinate 100 mg tablet 100 mg PO ONCE PRN migraines #20 01/10/24 tabs celecoxib 200 mg capsule 200 mg PO DAILY #90 caps 05/08/24 bupropion HCl 150 mg tablet,12 hr 150 mg PO BID #180 ea 07/18/24 sustained-release (Wellbutrin SR) gabapentin 300 mg capsule 900 mg (3 x 300 mg) PO TID 07/22/24 migraines #810 caps trazodone 50 mg tablet 100 mg (2 x 50 mg) PO HS PRN 07/22/24 insomnia #30 tabs triamterene 75 1 tab PO DAILY #90 tabs 08/05/24 mg-hydrochlorothiazide 50 mg tablet rosuvastatin 40 mg tablet 40 mg PO DAILY #30 tabs 09/22/24 Results & Data (ED) Vital Signs Vital Signs - 24 hr 10/14/24 12:55 10/14/24 14:34 10/14/24 16:23 Temperature 36.8 C Temperature Source Skin Pulse Rate 80 Pulse Rate [Apical] 66 65 Respiratory Rate 18 19 20 Respiratory Depth Normal Normal Blood Pressure 144/60 H Blood Pressure [Right Arm] 121/43 L 140/49 L Blood Pressure Mean 88 Blood Pressure Mean [Right Arm] 69 79 Pulse Oximetry 97 97 99 Oxygen Delivery Method Room Air Room Air Room Air Sepsis Recent Fever Within 48 Hours No Sepsis New/Unexplained Change in Mental Status No Sepsis Action Taken by Nursing No Action Required 10/14/24 16:24 Temperature Temperature Source Pulse Rate 72 Pulse Rate [Apical] Respiratory Rate 19 Respiratory Depth Blood Pressure 131/91 Blood Pressure [Right Arm] Blood Pressure Mean Blood Pressure Mean [Right Arm] Pulse Oximetry 98 Oxygen Delivery Method Room Air Sepsis Recent Fever Within 48 Hours Sepsis New/Unexplained Change in Mental Status Sepsis Action Taken by Nursing Laboratory Data 10/14/24 13:00 10/15/24 03:42 Lab Results 10/14/24 Range/Units 13:00 WBC 8.22 (4.8-10.8) K/ul RBC 3.94 L (4.20-5.40) M/uL Hgb 11.9 L (12.0-16.0) g/dl Hct 35.5 L (37.0-47.0) % MCV 90.1 (80.0-100.0) fL MCH 30.2 (25.0-34.0) pg MCHC 33.5 (32.0-36.0) g/dL RDW Std Deviation 42.3 (36.4-46.3) fL RDW Coeff of Jaxson 12.8 (11.5-14.5) % Plt Count 249 (130-400) K/uL MPV 10.6 (9.4-12.4) fL Immature Gran % (Auto) 0.5 % Neut % (Auto) 66.3 % Lymph % (Auto) 17.9 % [place] % (Auto) 9.6 % Eos % (Auto) 5.0 % Baso % (Auto) 0.7 % Neut # (Auto) 5.45 (1.40-6.50) K/uL Lymph # (Auto) 1.47 (1.20-3.40) K/uL [place] # (Auto) 0.79 H (0.11-0.59) K/uL Eos # (Auto) 0.41 (0.00-0.50) K/uL Baso # (Auto) 0.06 (0.00-0.20) K/uL Immature Gran # (Auto) 0.04 (0.01-0.20) K/uL PT 10.1 (9.0-12.0) Seconds INR 0.9 (0.9-1.1) APTT 28 (21-31) Seconds PTT Ratio 1.0 Sodium 137 (136-145) mmol/L Potassium 4.9 (3.5-5.1) mmol/L Chloride 103 (98-107) mmol/L Carbon Dioxide 27 (21-32) mmol/L Anion Gap 7 (3-11) BUN 50 H (6-23) mg/dl Creatinine 3.30 H (0.6-1.2) mg/dl Est Cr Clr Drug Dosing 15.1 ml/min eGFR 14.37 BUN/Creatinine Ratio 15.2 (10-20) Glucose 85 (70-99(Fasting)) mg/dl Calcium 9.1 (8.6-10.3) mg/dl Phosphorus 4.9 (2.5-4.9) mg/dl Magnesium 2.1 (1.7-2.4) mg/dl Total Bilirubin 0.4 (0.2-1.0) mg/dl AST 18 (13-39) U/L ALT 9 (7-52) U/L Alkaline Phosphatase 121 H (34-104) U/L Total Protein 7.0 (6.0-8.3) gm/dl Albumin 4.4 (3.4-5.0) gm/dl Globulin 2.6 (2.5-4.0) gm/dl Albumin/Globulin Ratio 1.7 (0.9-2) TSH 3.287 (0.300-4.500) uIu/ml Administered Medications Bupropion HCl (Bupropion Sr 150 Mg Tabcr) 150 mg PO BID JOSE LUIS Stop: 11/13/24 20:59 Last Admin: 10/14/24 21:56 Dose: 150 mg Documented By: MLM Heparin Sodium (Porcine) (Heparin Sod 5,000 Unit/0.5 Ml Vial) 5,000 units SQ Q12 JOSE LUIS Stop: 11/13/24 20:59 Last Admin: 10/14/24 21:56 Dose: 5,000 units Documented By: MLM Parenteral Electrolytes (Plasma-Lyte A Ph 7.4) 1,000 mls @ 125 mls/hr IV .Q8H JOSE LUIS Stop: 10/15/24 16:44 Last Admin: 10/15/24 00:56 Dose: 125 mls/hr Documented By: Infusion: 10/15/24 00:56 Dose: Infused Documented By: Admin: 10/14/24 17:30 Dose: 125 mls/hr Documented By: ABHIJEET Discontinued Medications Sodium Chloride (Nss) 500 mls @ 250 mls/hr IV .Q2H ONE Stop: 10/14/24 16:22 Last Infusion: 10/14/24 16:54 Dose: Infused Documented By: Admin: 10/14/24 14:33 Dose: 250 mls/hr Documented By: ABHIJEET Discharge Plan Visit Data Chief Complaint: Abnormal Labs/Diagnostic Testing Stated Complaint: ABN LIVER RESULTS/DOUBLED ED Provider: Van Smith Discharge Problem: Acute renal insufficiency, Hypertension, Fatigue Patient Disposition: Admitted As Inpatient Discharge Instructions Interventions: ED Discharge Assessment Last Done: 10/14/24 17:43 Discharge Problem: Hypertension Qualifiers: Hypertension type: unspecified Qualified Code(s): I10 - Essential (primary) hypertension Fatigue Qualifiers: Fatigue type: unspecified Qualified Code(s): R53.83 - Other fatigue
[2024-10-14] MEDS: SODIUM CHLORIDE 0.9% 500 ML IV ONE (14:33)
[2024-10-14 14:41] LABS: Magnesium 2.1 mg/dl (1.7-2.4); Phosphorus 4.9 mg/dl (2.5-4.9)
[2024-10-14 14:54] LABS: Thyroid Stimulating Hormone 3.287 uIu/ml (0.300-4.500)
--- NOTE | 2024-10-14 15:29 | CT Scan Report ---
ABDOMEN AND PELVIS CT WITHOUT CONTRAST CT DOSE: 970.61 mGy.cm HISTORY: Acute kidney injury MARISSA TECHNIQUE: Multiaxial CT images of the abdomen and pelvis were performed without contrast. A dose lo wering technique was utilized adhering to the principles of ALARA. COMPARISON STUDY: None. FINDINGS: Mild bibasilar atelectasis versus scarring. No pneumatosis or pneumoperitoneum. Unremarkabl e spleen, pancreas, adrenal glands and contracted gallbladder. The liver is within normal limits. Mild nonspecific bilateral perinephric stranding. Punctate nonobstructing calculus of the interpolar right kidney. No ureteral calculi or hydronephrosis. Unremarkable urinary bladder. There is a partial ly calcified 2 cm lesion within the left hemipelvis on image 263 which may represent a pedunculated l eiomyoma. Atherosclerosis of the aorta without aneurysm. No lymphadenopathy. Moderate-sized hiatal hernia. No bowel obstruction or bowel wall thickening. No ascites or mesenteric inflammation. Moderate colonic fecal retention. Normal appendix. No acute fracture. IMPRESSION: 1. Punctate nonobstructing right renal calculus. No ureteral calculi or hydronephrosis. 2. No bowel obstruction or bowel wall thickening. 3. Moderate colonic fecal retention. ACT 112: Negative or not required by law. The above report was generated using voice recognition software. It may contain grammatical, syntax o r spelling errors. Electronically signed by: Tejas Chong M.D. 10/14/2024 3:27 PM
--- NOTE | 2024-10-14 16:50 | History & Physical Report ---
Date of Service October 14, 2024 Assessment & Plan (1) MARISSA (acute kidney injury): Plan: 73 y/o female with PMH of HTN, Hypercholesterolemia, PVC's, PAC's, Prediabetes, Hypothyrodysm, Osteoarthritis s/p Bilateral TKA's 02/26/23 complicated by DVT/Right Pulmonary Embolus, s/p Left Reversed TSA 06/25/23 Sent by PCP due to increased of Creatinine Cr. 3.30 Electrolytes normal Patient currently on Dyazide 75-50 mg daily and colecoxib Dyazide was recently increase BP had remained stable since increasing medication UA ordered CTA: Punctate nonobstructing right renal calculus. No ureteral calculi or hydronephrosis Hold Dyazide and celecoxib Gabapentin decreased to renal dosing for now Avoid nephrotoxic medications IV Plasmalyte 125 ml/hr [facility], [facility], AM (2) History of pulmonary embolus (PE): Plan: PE dx in February 2023 post b/l knee replacement Completed treatment Aug 2023. Heparin 5,000mg q12 for prophylaxis (3) PVC's (premature ventricular contractions): Plan: stable, monitor (4) Paroxysmal atrial tachycardia: Plan: stable, monitor (5) Hypertension: Plan: Hold Dyazide Monitor BP, will hold IV med due history of hypotension and syncope consider treatment systolic >200 Avoid nephrotoxic medication (6) Hypothyroidism: Plan: continue Synthroid (7) Migraine headache: Plan: Gabapentin reduced for renal dose for now Sumatriptan as needed for migraines Plan FEN: HH Code status: full code DVT ppx: heparin 5,000 q12 Held home meds: Dyazide, colecoxib Dispo: Med/surg History of Present Illness Primary Care Provider: Teena Cadena DO 73 y/o female with PMH of HTN, Hypercholesterolemia, PVC's, PAC's, Prediabetes, Hypothyroidism, Osteoarthritis s/p Bilateral TKA's 02/26/23 complicated by DVT/Right Pulmonary Embolus, s/p Left Reversed TSA 06/25/23 who presented to the ED referred by PCP due to high creatinine function. Patient refers that had been feeling weak for a month. Dyazide was started 3 month ago, with a increased about a month ago. BP had remained stable. she refers voiding well, no dysuria, no frequency, no urgency. No know kidney disease. She takes Colecoxib. Denied any chest pain, SOB, palpitations, abdominal pain, nausea, vomiting, fatigue, leg edema. ED: Cr 3.30. Electrolytes within normal limits. CTA: nonobstructing right renal calculus. No ureteral calculi or hydronephrosis. Allergies Allergy/AdvReac Type Severity Reaction Status Date / Time Sulfa (Sulfonamide AdvReac Intermediate nausea Verified 10/14/24 16:22 Antibiotics) Home Medications Medication Instructions Recorded Confirmed Type sumatriptan succinate 100 mg tablet 100 mg PO ONCE PRN migraines #20 01/10/24 10/14/24 Rx tabs celecoxib 200 mg capsule 200 mg PO DAILY #90 caps 05/08/24 10/14/24 Rx bupropion HCl 150 mg tablet,12 hr 150 mg PO BID #180 ea 07/18/24 10/14/24 Rx sustained-release (Wellbutrin SR) gabapentin 300 mg capsule 900 mg (3 x 300 mg) PO TID 07/22/24 10/14/24 Rx migraines #810 caps trazodone 50 mg tablet 100 mg (2 x 50 mg) PO HS PRN 07/22/24 10/14/24 Rx insomnia #30 tabs triamterene 75 1 tab PO DAILY #90 tabs 08/05/24 10/14/24 Rx mg-hydrochlorothiazide 50 mg tablet rosuvastatin 40 mg tablet 40 mg PO DAILY #30 tabs 09/22/24 10/14/24 Rx levothyroxine 100 mcg tablet 100 mcg PO UD 10/14/24 10/14/24 History levothyroxine 88 mcg tablet 88 mcg PO UD 10/14/24 10/14/24 History pantoprazole 40 mg tablet,delayed 40 mg PO DAILYBB 10/14/24 10/14/24 History release Past Med/Surg History Problem List (Updated 10/15/24 @ 05:11 by Van Smith MD) Fatigue (Acute) Hypertension (Acute) Acute renal insufficiency (Acute) MARISSA (acute kidney injury) Personal history of infected joint Vitamin D deficiency GERD (gastroesophageal reflux disease) Prosthetic shoulder infection Anemia B12 deficiency History of pulmonary embolus (PE) Post-op b/l knee replacement (02/2023) PVC's (premature ventricular contractions) Paroxysmal atrial tachycardia Hypertension Prediabetes Osteoarthritis Hyperlipidemia no current medications Anxiety and depression Hypothyroidism Insomnia Migraine headache Allergic rhinitis Medical History History of removal of joint prosthesis of shoulder due to infection (07/2023) Low back pain Transient elevated blood pressure Hypotension Syncope Anticoagulant long-term use Rotator cuff arthropathy of left shoulder Vasovagal near-syncope Rotator cuff tear Post op infection Hypotension Surgical History S/P shoulder surgery (07/2023) 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) History of colonoscopy S/P tonsillectomy History of open reduction and internal fixation (ORIF) procedure History of carpal tunnel surgery S/P rotator cuff repair Family History Father Hypertension Multiple myeloma Mother Esophageal cancer Other No family history of adverse response to anesthesia Denies family history of Ovarian cancer Prostate cancer Myocardial infarction Breast cancer Colorectal cancer Social History Smoking Status: Never smoker Second Hand Exposure: No; Do You Dip or Chew Tobacco: No; Hx Alcohol Use: No Hx Substance Use: No Preferred Language: Frisian Communication Ability: Effective Visual Impairment: No Limitations Hearing Ability: Normal Electrical Service Technician Required: No Beliefs That Will Affect Care: None marital status: Current Living Situation: Spouse current occupational status: employed current occupation: parttime at [employer] How many Children do You have: 2 How many Children do You have Comment: adopted special needs children Feels Safe at Home: Yes Childhood Exposure to Second-Hand Smoke: No Diet: regular Diet Comment: Regular caffeine: No during the past year weight has: remained stable Dental Care, Regularly: Yes Physical Activity Frequency: 3-4 Times per Week Physical Activity Frequency Comment: Walking Seatbelt Use: always Sunscreen Use: Yes Assistive Devices: None Review of Systems Review of Systems: as per HPI Physical Exam Constitutional: WD/WN, vitals as above Eyes: PERRL, conjunctivae normal, anicteric sclerae Respiratory: normal respiratory effort, lungs clear to auscultation Cardiovascular: RRR, no murmur, no edema Gastrointestinal (Abdomen): normal bowel sounds, soft, nontender, no hepatosplenomegaly Musculoskeletal: no cyanosis or clubbing, extremities motor strength 5/5 Results & Data Results & Data Vital Signs (Past 12 Hours) Vital Signs Temp Pulse Pulse Resp BP BP Pulse Ox 10/14/24 16:24 72 19 131/91 98 10/14/24 16:23 65 20 140/49 L 99 10/14/24 14:34 66 19 121/43 L 97 10/14/24 12:55 36.8 C 80 18 144/60 H 97 O2 Del Method 10/14/24 16:24 Room Air 10/14/24 16:23 Room Air 10/14/24 14:34 Room Air 10/14/24 12:55 Room Air Code Status & VTE Plan VTE Prophylaxis Plan VTE Prophylaxis will be ordered: Yes Supervising Physician Co-Signing Physician Notes I personally saw and examined the patient. I independently reviewed the labs, EKG, imaging, problem list, medication list, past medical history and family history. I verified all walters points and agree with resident physician Dr Lm Waldrop MD with the following exceptions and/or additions: 73 year old female presents to the ER with abnormal outpatient creatinine. She is asymptomatic at this time. O/E HS RRR, no murmurs, Chest CTAB, Abdo SNT, no CVA tenderness A/P MARISSA - suspect secondary to diuretics and NSAID use. Hold these medications. IV Plasma-Lyte, repeat BMP in AM Resident Activity Tracking Resident Involvement: Resident Care Provided Care Provided: Adult Hospital Medicine (5) Hypertension Hypertension type: unspecified Qualified Code(s): I10 - Essential (primary) hypertension
[2024-10-14] MEDS: PLASMA-LYTE A 1,000 ML IV SCH (17:30)
[2024-10-14] MEDS ORDERED: traZODone HCL 100 MG TAB PO PRN (18:19)
[2024-10-14 18:40] LABS: Appearance Urine Clear (Clear); Bacteria Urine Automated None Seen (None Seen); Bilirubin Urine Negative (Negative); Blood Urine Negative (Negative); Color Urine Yellow; Epithelial Cell Urine Auto 0-2 /hpf (0-2); Glucose Urine UA Negative (Negative); Ketones Urine Negative (Negative); Leukocyte Esterase Urine Trace (Negative); Nitrite Urine Negative (Negative); Protein Urine Negative (Negative); RBC Urine Automated 0-2 /hpf (0-2); Specific Gravity Urine 1.009 (1.000-1.030); Urobilinogen Urine Negative (Negative); WBC Urine Automated 0-5 /hpf (0-5); pH Urine 5.5 (4.5-7.5)
[2024-10-14 19:03] LABS: Creatinine Urine Random 48.3 mg/dl
[2024-10-14] MEDS: HEPARIN SOD 5,000 UNIT/0.5 ML VIAL SQ SCH (21:56)
[2024-10-14] MEDS: buPROPion SR 150 MG TABCR PO SCH (21:56)
[2024-10-15 04:45] LABS: BUN Creatinine Ratio 15.3 (10-20); Calcium 8.2 mg/dl (8.6-10.3); Creatinine Clr Calc Pharmacy 15.9 ml/min; Magnesium 2.3 mg/dl (1.7-2.4); Potassium 4.2 mmol/L (3.5-5.1)
[2024-10-15] MEDS: PANTOprazole 40 MG TAB PO SCH (05:08)
[2024-10-15] MEDS: LEVOTHYROXINE SODIUM 100 MCG TABLET PO SCH (05:08)
[2024-10-15] MEDS: GABAPENTIN 300 MG CAP PO SCH (08:28)
[2024-10-15] MEDS: ROSUVASTATIN CALCIUM 20 MG TAB PO SCH (08:29)
--- NOTE | 2024-10-15 09:21 | Medical Student Progress Note ---
Date of Service October 15, 2024 Assessment & Plan (1) MARISSA (acute kidney injury): Plan: 73 year old with hx of HTN, Hypercholesterolemia, PVCs, PACs, Prediabetes, Hypothyroidism, Osteoarthritis s/p Bilateral TKA's 02/26/23 complicated by DVT/Right Pulmonary Embolus, s/p Left Reversed TSA 06/25/23 who presented to the hospital by recommendation of her PCP 10/14 due to abnormal outpatient creatinine level. - Arrived to ED on PCP's concern for a creatine of 3.4 (baseline 1, last reading in August 29.). - Increased Dyazide 1.5 month ago, she reports increasing fatigue for approximately the last month - BUN 50 --> 48 in AM, creatinine 3.3 --> 3.13 in AM - Electrolytes normal - UA significant for trace leukocyte esterase, high hyaline casts. Patient w/o dysuria, low suspicion for UTI. - Abdomen CT significant for Punctate nonobstructing right renal calculus. No ureteral calculi or hydronephrosis. Moderate colonic fecal retention. - Presentation concerning for ATN - Continue IV plasmalyte - Encouraged p.o intake - Continue to hold HCTZ-Triamterene and Celebrex - Serial BMPs (2) History of pulmonary embolus (PE): Plan: - PE dx in February 2023 post b/l knee replacement, completed treatment August 2023 - Heparin 5,000mg q12 for prophylaxis (3) PVC's (premature ventricular contractions): Plan: - Stable, continue to monitor (4) Paroxysmal atrial tachycardia: Plan: - Stable, continue to monitor (5) Hypertension: Plan: - Chronic, stable on admission - Holding Dyazide d/t MARISSA and avoidance of nephrotoxic agents - Consider addition of another antihypertensive if SBP > 200 Hypertension type: unspecified Qualified Code(s): I10 - Essential (primary) hypertension (6) Hypothyroidism: Plan: - Continue Synthroid (7) Migraine headache: Plan: - Gabapentin reduced to renal dose - Sumatriptan as needed Admission and Anticipated Discharge Date Admission Date: October 14, 2024 Supervising Attestation I personally examined the patient and verified all walters points of history and exam, discussed case, and agree with decision making with Dr Kerns and Chloe Crane MS2 feeling ok - other than feeling vaguely fatigued no complaints. no sob. thinks she is voiding normally/normal amount vitals noted nad heent nc at mmm breathing unlabored no accessory muscles good effort skin no rashes no pallor or icterus neuro no focal deficits ARF/probable ATN - suspect prerenal -> ATN w dyazide and celebrex as main culprits. no pulmonary edema/doesn't appear oliguric/anuric; no hyperkalemia. follow inpatient into tomorrow to ensure trend towards improvement then as long as able to adequately hydrate PO probably will be safe for home/close outpt f/u/biweekly labs. LBP - discussed OMT, tylenol arthritis HTN- follow BP off dyazide Subjective Patient is feeling okay this morning, still fatigued as she has been for the last month. Denies CP, palpitations, nausea, headache, burning/pain with urination. Review of Systems Review of Systems: ROS noncontributory except for what was discussed in H&P and assessment/plan. Physical Exam Constitutional: well developed and well nourished ENMT: moist oral mucosa Respiratory: normal respiratory effort, lungs clear to auscultation Auscultation: lungs clear to auscultation bilaterally Cardiovascular: RRR, no murmur, no edema Vessels: radial pulses present Extremities: normal capillary refill Skin: no sign of tenting Results & Data Vital Signs (Past 12 Hours) Vital Signs Temp Pulse Resp BP Pulse Ox O2 Del Method 10/14/24 19:46 36.4 C L 63 16 149/75 H 96 Room Air Resident Activity Tracking Resident Involvement: Resident Care Provided Care Provided: Adult Hospital Medicine
--- NOTE | 2024-10-15 11:48 | Billing Data ---
Date of Service October 14, 2024 Coding Level of Care Code 42342 INT INP/OBS CARE
--- NOTE | 2024-10-15 14:07 | Billing Data ---
Date of Service October 15, 2024 Coding Level of Care Code 02885 SUB INP/OBS CARE
[2024-10-15] MEDS: ACETAMINOPHEN 325 MG TAB PO PRN (16:26)
[2024-10-16] MEDS: SUMAtriptan succinate 100 MG TAB PO PRN (06:28)
[2024-10-16 07:39] VITALS: RESP 16; TEMP 97.9; O2SAT 96
[2024-10-16 08:49] LABS: BUN Creatinine Ratio 14.7 (10-20); Creatinine Clr Calc Pharmacy 18.2 ml/min; Potassium 4.1 mmol/L (3.5-5.1)
[2024-10-16] MEDS: amLODIPine BESYLATE 5 MG TAB PO SCH (08:55)
--- NOTE | 2024-10-16 09:51 | XRay Report ---
XR chest 1V portable HISTORY: 73 years-old Female cough s/p fluid COMPARISON: September 29, 2024 TECHNIQUE: AP view the chest FINDINGS: Cardiomediastinal and hilar silhouettes are within normal limits. There is unchanged mild right hemid iaphragmatic elevation. No pneumothorax, large pleural effusion or overt pulmonary edema. No lobar ai rspace consolidation. Chronic left-sided rib fractures. Left shoulder arthroplasty. IMPRESSION: No acute process. ACT 112: Negative or not required by law. The above report was generated using voice recognition software. It may contain grammatical, syntax o r spelling errors. Electronically signed by: Tejas Chong M.D. 10/16/2024 9:50 AM
[2024-10-16 09:58] VITALS: BP 140/49; PULSE 65
--- NOTE | 2024-10-16 10:20 | Med Student Discharge Summary ---
Date of Service October 16, 2024 Admission HPI Per Admitting Provider 73 y/o female with PMH of HTN, Hypercholesterolemia, PVC's, PAC's, Prediabetes, Hypothyroidism, Osteoarthritis s/p Bilateral TKA's 02/26/23 complicated by DVT/Right Pulmonary Embolus, s/p Left Reversed TSA 06/25/23 who presented to the ED referred by PCP due to high creatinine function. Patient refers that had been feeling weak for a month. Dyazide was started 3 month ago, with a increased about a month ago. BP had remained stable. she refers voiding well, no dysuria, no frequency, no urgency. No know kidney disease. She takes Colecoxib. Denied any chest pain, SOB, palpitations, abdominal pain, nausea, vomiting, fatigue, leg edema. ED: Cr 3.30. Electrolytes within normal limits. CTA: nonobstructing right renal calculus. No ureteral calculi or hydronephrosis. Admission Exam (Per Admitting) Constitutional well developed, well nourished and cooperative Respiratory normal respiratory effort Cardiovascular RRR, no murmur, no edema Vessels: radial pulses present Extremities: normal capillary refill Discharge Exam Constitutional well developed, well nourished and cooperative Respiratory normal respiratory effort scattered rales and rhonchi throughout upper and lower lobes Cardiovascular RRR, no murmur, no edema Vessels: radial pulses present Extremities: normal capillary refill Discharge Data Consultations 10/14/24 16:01 ED Decision to Admit Stat Hospital Course (1) MARISSA (acute kidney injury): 73 year old with hx of HTN, Hypercholesterolemia, PVCs, PACs, Prediabetes, Hypothyroidism, Osteoarthritis s/p Bilateral TKA's 02/26/23 complicated by DVT/Right Pulmonary Embolus, s/p Left Reversed TSA 06/25/23 who presented to the hospital by recommendation of her PCP on 10/14 due to abnormal outpatient creatinine level. - Arrived to ED on PCP's concern for a creatine of 3.4 (baseline 1, last reading in 11.06). - Increased Dyazide 1.5 month ago, she reports increasing fatigue for approximately the last month - BUN trending down, 50--> 48 --> 40 on discharge, creatinine trending down 3.4 --> 3.13 ---> 2.73 on discharge. - No electrolyte abnormalities on BMP. - UA significant for trace leukocyte esterase, high hyaline casts but patient w/o dysuria, low suspicion for UTI. - Abdomen CT significant for Punctate nonobstructing right renal calculus. No ureteral calculi or hydronephrosis. Moderate colonic fecal retention. - Presentation concerning for ATN due to hyaline casts on UA and length of symptom duration. - Patient was rehydrated with IV plasmalyte, and encouraged p.o intake of fluids (2) Hypertension: - Chronic, stable on admission - Held Dyazide d/t MARISSA and avoidance of nephrotoxic agents - BP increased to 203/76 on 10/16, added amlodipine 5mg - Encouraged F/U with PCP (3) Cough: - Patient developed mild dry hoarse cough on morning of 10/16. Denies fever, chills, rhinorrhea, congestion, sneezing, sore throat. Lungs were significant for scattered rales and rhonhi throughout upper and lower lobes on PE. - CXR completed due to patient receiving IV fluids, showed no evidence of acute process. Cardiomediastinal and hilar silhouettes are within normal limits. There is unchanged mild right hemidiaphragmatic elevation. No pneumothorax, large pleural effusion or overt pulmonary edema. No lobar airspace consolidation. Ch ronic left-sided rib fractures. Left shoulder arthroplasty. - Reccomended F/U with PCP (4) History of pulmonary embolus (PE): (2) History of pulmonary embolus (PE): - PE dx in February 2023 post b/l knee replacement, completed treatment August 2023 - Pateint was treated with Heparin 5,000mg q12 for prophylaxis for duration of hospital stay (5) PVC's (premature ventricular contractions): - Stable, patient remained in sinus rhythm for duration of hospital stay (6) Paroxysmal atrial tachycardia: Stable, patient remained in sinus rhythm for duration of hospital stay (7) Hypothyroidism: - Continue Synthroid (8) Migraine headache: - Gabapentin reduced to renal dose - Sumatriptan as needed Discharge Plan Discharge Items Patient Disposition: Home - Self-Care Reason For Visit: MARISSA Discharge Diagnosis: Acute Kidney Injury 2/2 Diuretic Use Activity: Per Instructions section Non-emergency contact: Primary Care Provider Call non-emergency contact if: you have any medication questions Follow-up/Referrals: Teena Cadena DO [Primary Care Provider] - 10/28/24 10:20 am Diet: Heart Healthy Ambulatory Orders: Basic Metabolic Panel (Routine) Timeframe: 3 Days Location: Determined by Patient Ordered By: Myranda Mancini Attending Provider Instructions: You presented to the hospital for evaluation of worsening kidney function labs. Upon presentation, Celebrex and Dyazide were discontinued. In addition, you were started on IV fluids. Your kidneys improved, but slowly, which suggests acute tubular necrosis, which is when some of the kidney cells from not having enough blood flow for too long. We liken this to 'a bad haircut' and expect that the kidney cells will recover over time. In order to ensure recovery, we recommend having a BMP done via lab work twice weekly to follow your kidney function. Please follow up with your PCP within one week to review these results. A lab order will be sent for the first follow up BMP. Since you required discontinuation of Dyazide to help your kidneys, we started you on a medication called Amlodipine. Please take Amlodipine 5 mg by mouth every day. You will need to follow with your primary doctor for ongoing ad justments to this medication. If you have a blood pressure cuff at home, check your blood pressure in the mornings and write it down for review with your PCP. You developed a mild cough inpatient, because you received IV fluids we checked a X Ray. This was unremarkable. Continue supportive measures at home (antihistamine, decongestant, etc.). Contact PCP if cough persists. Home medication changes: - STOP Dyazide, START Amlodipine - STOP Celebrex, START OMT with Dr. Funes as discussed inpatient It was a pleasure to be a part of your care, Dr. Myranda Kerns Pending Studies at Discharge: No Stand-Alone Forms: My [facility] [address] [employer], Smoking Cessation Medications and DC Order Prescriptions: New amlodipine [Norvasc] 5 mg Tablet 5 mg PO QAM 30 Days Qty: 30 0RF Continued bupropion HCl [Wellbutrin SR] 150 mg tablet sustained-release 12 hr 150 mg PO BID Qty: 180 1RF gabapentin 300 mg capsule 900 mg PO TID Qty: 810 1RF trazodone 50 mg tablet 100 mg PO HS PRN (Reason: insomnia) Qty: 30 0RF rosuvastatin 40 mg tablet 40 mg PO DAILY Qty: 30 2RF sumatriptan succinate 100 mg tablet 100 mg PO ONCE PRN (Reason: migraines) Qty: 20 0RF Rx Instructions: may repeat >q2 hrs if symptoms persist; do not exceed 2 doses per 24 hrs (200 mg) levothyroxine 100 mcg tablet 100 mcg PO UD Rx Instructions: 100 mcg PO Sunday- Sunday; levothyroxine 88 mcg tablet 88 mcg PO UD Rx Instructions: 88 mcg PO Sunday and Sunday; pantoprazole 40 mg tablet,delayed release (DR/EC) 40 mg PO DAILYBB Rx Instructions: TAKE 1 TABLET DAILY Discontinued triamterene-hydrochlorothiazid 75-50 mg tablet 1 tab PO DAILY Qty: 90 3RF celecoxib 200 mg capsule 200 mg PO DAILY Qty: 90 3RF Discharge Orders: Discharge Order (Routine); Ordered 10/16/24 Ordered By: Myranda Kerns Admission Data Admit Date/Time: 10/15/24 14:06 Attending Provider: Wily Romo Admit Provider: Lm Fonseca Primary Care Provider: Teena Cadena Other Providers: Kameron Wagner Other Interventions: Discharge Summary Assessment (RN) Last Done: 10/16/24 09:57 Supervising Attestation I personally examined the patient and verified all walters points of history and exam, discussed case, and agree with decision making with Dr Kerns and Chloe Crane MS2 had a little bit of a coughno shortness of breath. vitals noted nad heent nc at mmm breathing unlabored no accessory muscles good effort No accessory muscle use or conversational dyspnea but did have scattered rhonchi and faint right midlung rale. skin no rashes no pallor or icterus neuro no focal deficits ARF/probable ATN - suspect prerenal -> ATN w dyazide and celebrex as main culprits. no pulmonary edema/doesn't appear oliguric/anuric; no hyperkalemia. (Strongly suspected cough was all upper airway either from viral etiology or possibly even just from dry building, but given that she had rhonchi (probably from postnasal drip mucus) but in the context of her current renal failure obtained chest x-ray to ensure there was not an atypical physical exam for pulmonary edemathere was not. With no pulmonary edema, no hyperkalemia, creatinine improving, and offending culprits (Dyazide and Celebrex) stoppedsafe/stable for home. Adequate p.o. fluid intake (60-80 ounces) and biweekly labs (basic metabolic panelhopefully will show ongoing improvementdiscussed that while we anticipate improvement, it would be hard to predict complete resolution back to baseline, although it would be reasonable to expect she should have significant if not total improvement. LBP - discussed OMT, tylenol arthritis HTN- Blood pressure did reach 200 systolic off Dyazidebecause of this initiated amlodipine at 5 mg since it should have no impact on kidney function. Patient was initially hesitant to take any blood pressure medicines because of syncopal events a few years agowe reviewed these and it seems to be multifactorial between multiple medications and finally a vasovagal pathway, also discussed with patient that she has been on a rather potent blood pressure medicine for several months with no syncope, and given that we were stopping her blood pressure medicine but her blood pressure almost immediately seem to be out of control; seemed reasonable to initiate alternative treatment to ensure tolerabilityseems to be tolerating it well. May need to titrate amlodipine as an outpatient, but tried to reassure patient that I highly doubt syncopal events while in [place] for the multitude of reasons outlined above. (Both that it seems like it was a "perfect storm" of vagal events compounded by multiple antihyperte nsives when she was having syncopal events; also the fact that she has been on a rather potent antihypertensive and tolerating well prior to admission) home, off dyazide and celebrex, PO fluid intake, biweekly BMP; ongoing PCP f/u
--- NOTE | 2024-10-16 13:39 | Billing Data ---
Date of Service October 16, 2024 Coding Level of Care Code 94445 IN/OBS DISCH 30 MIN/LESS
[2024-10-18] MEDS ORDERED: LEVOTHYROXINE SODIUM 88 MCG TABLET PO SCH (06:30)
== END 2024-10-16 10:49 | disposition home or self-care (01) | DRG 684 ==
LOC: ED 12:52 → 3W 12:52 → SUATTDRO 16:48 → 3W 17:43
DX: Z86.711 Personal history of pulmonary embolism; I10 Essential (primary) hypertension; Z79.899 Other long term (current) drug therapy; G43.909 Migraine, unspecified, not intractable, without status migrainosus; R05.9 Cough, unspecified; Z96.653 Presence of artificial knee joint, bilateral; M54.50 Low back pain, unspecified; Z79.890 Hormone replacement therapy; R00.0 Tachycardia, unspecified; Z96.612 Presence of left artificial shoulder joint; N17.0 Acute kidney failure with tubular necrosis; T39.395A Adverse effect of other nonsteroidal anti-inflammatory drugs [NSAID], initial encounter; E78.00 Pure hypercholesterolemia, unspecified; R73.03 Prediabetes; I49.3 Ventricular premature depolarization; T50.2X5A Adverse effect of carbonic-anhydrase inhibitors, benzothiadiazides and other diuretics, initial encounter; E03.9 Hypothyroidism, unspecified